=== PATIENT | male | born 1945 | race Hispanic/Latino ===

== ENCOUNTER 2018-08-09 13:32 | Inpatient (IN) | payer OTHER ==
[2018-08-09] MEDS ORDERED: Sodium Chloride 0.9% 1,000 ML IV STA (13:59)
--- NOTE | 2018-08-09 14:08 | ED PDOC ---
HPI: Abdomen Time Seen by Provider: 08/09/18 13:46 Chief Complaint (Nursing): Abdominal Pain Chief Complaint (Provider): Jaundice History Per: Patient Additional Complaint(s): Pt reports diarrhea X 6 days, started 2 days after arriving from [facility], notice yellow discoloration of skin and eyes 2 days ago with stool discoloration and dark urine. Denies fever, CP, SOB, nausea, vomiting, dysuria, hematuria. Took Imodium at home without relief. Past Medical History Reviewed: Nursing Documentation, Vital Signs Vital Signs: Last Vital Signs Temp 97 F L 08/09/18 13:33 Pulse 72 08/09/18 13:33 Resp 16 08/09/18 13:33 BP 149/83 08/09/18 13:33 Pulse Ox 98 08/09/18 13:33 - Medical History PMH: No Chronic Diseases - Surgical History Surgical History: Appendectomy - Family History Family History: States: Unknown Family Hx - Living Arrangements Living Arrangements: With Family - Social History Current smoker - smoking cessation education provided: No Alcohol: Occasional - Home Medications Home Medications: Ambulatory Orders Medication Instructions Recorded No Known Home Med 08/09/18 - Allergies Allergies/Adverse Reactions: Allergies Allergy/AdvReac Type Severity Reaction Status Date / Time Sulfa (Sulfonamide Allergy REDNESS Verified 08/09/18 13:34 Antibiotics) Review of Systems Constitutional: Negative for: Fever, Chills Eyes: Negative for: Pain Cardiovascular: Negative for: Chest Pain, Palpitations Respiratory: Negative for: Cough, Shortness of Breath Gastrointestinal: Positive for: Abdominal Pain, Diarrhea. Negative for: Nausea, Vomiting, Melena Genitourinary Male: Negative for: Dysuria, Hematuria Musculoskeletal: Negative for: Neck Pain, Back Pain Skin: Positive for: Jaundice Neurological: Negative for: Headache, Dizziness Physical Exam - Reviewed Nursing Documentation Reviewed: Yes Vital Signs Reviewed: Yes - Physical Exam Appears: Positive for: Well, No Acute Distress Head Exam: Positive for: ATRAUMATIC, NORMAL INSPECTION Skin: Positive for: Jaundice Eye Exam: Positive for: Normal appearance, EOMI, PERRL, Scleral icterus Neck: Positive for: Normal Cardiovascular/Chest: Positive for: Regular Rate, Rhythm Respiratory: Positive for: Normal Breath Sounds Gastrointestinal/Abdominal: Positive for: Bowel Sounds, Soft, Tenderness (RUQ), Other (+ Thomson's sign). Negative for: Distended, Guarding Back: Positive for: Normal Inspection Extremity: Positive for: Normal ROM Neurological/Psych: Positive for: Awake, Alert, Oriented - Laboratory Results Result Diagrams: 08/11/18 06:00 08/11/18 06:00 - ECG O2 Sat by Pulse Oximetry: 98 Medical Decision Making Medical Decision Makin yo male with jaundice and RUQ pain. - labs - EKG - CXR - RUQ ultrasound - IVF Disposition - Clinical Impression Clinical Impression: Gall bladder disease - Disposition Disposition: Transfer of Care Disposition Time: 15:00 Condition: STABLE Patient Signed Over To: Kesha Self
[2018-08-09 14:38] LABS: SQUAMOUS EPITHIAL 1 /hpf (0-5); URINE BACTERIA RARE (<OCC); URINE BILIRUBIN MODERATE (NEGATIVE); URINE BLOOD NEGATIVE (NEGATIVE); URINE CLARITY SLIGHTY-CLOUDY (Clear); URINE COLOR AMBER (YELLOW); URINE GLUCOSE (UA) NEG (NEGATIVE); URINE HYALINE CAST 0-2 /hpf (0-2); URINE LEUKOCYTE ESTERASE TRACE Leu/uL (Negative); URINE PROTEIN NEGATIVE (NEGATIVE)
[2018-08-09 14:43] LABS: BASO # 0.1 K/uL (0.0-0.2); BASO % 1.4 % (0.0-2.0); EOS # 0.2 K/uL (0.0-0.7); EOS % 3.1 % (0.0-4.0); HEMOGLOBIN 12.2 g/dL (12.0-18.0); LYMPH # 1.3 K/uL (1.0-4.3); LYMPH % 19.6 % (20.0-40.0); MEAN CELL VOLUME 87.8 fl (80.0-94.0); MEAN CORPUSCULAR HEMOGLOBIN 30.8 pg (27.0-31.0); MEAN CORPUSCULAR HGB CONC 35.1 g/dL (33.0-37.0); MEAN PLATELET VOLUME 9.4 fl (7.2-11.7); MONO # 0.6 K/uL (0.0-0.8); MONO % 9.9 % (0.0-10.0); NEUT # 4.3 K/uL (1.8-7.0); RBC 3.94 Mil/uL (4.40-5.90); RED CELL DISTRIBUTION WIDTH 17.2 % (11.5-14.5); WHITE BLOOD COUNT 6.5 K/uL (4.8-10.8)
[2018-08-09 14:46] LABS: INR 0.9
[2018-08-09 14:48] LABS: PARTIAL THROMBOPLASTIN TIME 38.3 Seconds (25.6-37.1)
[2018-08-09 14:50] LABS: ALT/SGPT 146 U/L (21-72); AST/SGOT 72 U/L (17-59); BLOOD UREA NITROGEN 17 mg/dl (9-20); CALCIUM 9.8 mg/dL (8.4-10.2); GFR NON-AFRICAN AMERICAN > 60; LIPASE 106 U/L (23-300)
--- NOTE | 2018-08-09 15:11 | ED PDOC ---
- Laboratory Results Result Diagrams: 08/10/18 06:30 08/10/18 06:30 Lab Results: INR 0.9 08/09/18 14:36 APTT 38.3 Seconds (25.6-37.1) H 08/09/18 14:36 Total Bilirubin 16.4 mg/dl (0.2-1.3) H 08/09/18 14:36 AST 72 U/L (17-59) H 08/09/18 14:36 ALT 146 U/L (21-72) H 08/09/18 14:36 Alkaline Phosphatase 602 U/L (38-126) H 08/09/18 14:36 Total Protein 8.1 G/DL (6.3-8.2) 08/09/18 14:36 Albumin 4.0 g/dL (3.5-5.0) 08/09/18 14:36 Globulin 4.1 gm/dL (2.2-3.9) H 08/09/18 14:36 Albumin/Globulin Ratio 1.0 (1.0-2.1) 08/09/18 14:36 Lipase 106 U/L (23-300) 08/09/18 14:36 - ECG O2 Sat by Pulse Oximetry: 98 Medical Decision Making Medical Decision Makin Patient is here from [facility] with headache and RUQ pain pending RUQ sono. His labs show elevated liver enzymes and will most likely require surgery consult. 1812 Abdomen US FINDINGS: Technologist notation indicates patient ate more than 8 hr prior to this study LIVER: Measures 17.0 cm in length. Normal echogenicity of the liver parenchyma. No mass. No intrahepatic bile duct dilatation. GALLBLADDER: Gallbladder is incompletely distended and/or contracted with irregular thick- walled appearance. While this could be secondary to recent meal with the gallbladder contraction rule differential diagnosis would still include chronic cholecystitis. The possibility of gallbladder wall mass/gallbladder carcinoma should be considered. No definitive evidence of intraluminal gallbladder calculi. Clinical correlation recommended. COMMON BILE DUCT: Measures 7.0 mm. No stones. No dilatation. PANCREAS: Unremarkable as visualized. No mass. No ductal dilatation. RIGHT KIDNEY: Measures 10.9 x 3.5 x 5.2 cm in length. Normal echogenicity. No calculus, mass, or hydronephrosis. AORTA: No aneurysmal dilatation. IVC: Unremarkable. OTHER FINDINGS: None . IMPRESSION: Gallbladder is incompletely distended and/or contracted with irregular thick- walled appearance. While this could be secondary to recent meal with the gallbladder contraction rule differential diagnosis would still include chronic cholecystitis. The possibility of gallbladder wall mass/gallbladder carcinoma should be considered. No definitive evidence of intraluminal gallbladder calculi. Clinical correlation recommended. 1849 Discussed case with on-call resident athletic trainer Dr. Drew who believes patient most likely has cancerous mass and suggested to call Dr. Gomez who does surgical oncology. Consult placed Scribe Attestation: Documented by Ashley Coreas, acting as a scribe for Kesha Self MD. Provider Scribe Attestation: All medical record entries made by the Scribe were at my direction and personally dictated by me. I have reviewed the chart and agree that the record accurately reflects my personal performance of the history, physical exam, medical decision making, and the department course for this patient. I have also personally directed, reviewed, and agree with the discharge instructions and disposition. Disposition - Clinical Impression Clinical Impression: Gall bladder disease - POA Present On Arrival: None - Disposition Disposition: Admitted as In-Patient Disposition Time: 18:50 Condition: FAIR
[2018-08-09 15:13] LABS: PROTHROMBIN TIME 9.9 Seconds (9.8-13.1)
--- NOTE | 2018-08-09 18:17 | US ---
Date of service: 08/09/2018 HISTORY: RUQ pain, jaundice COMPARISON: None. TECHNIQUE: Sonographic evaluation of the right upper quadrant of the abdomen. FINDINGS: Technologist notation indicates patient ate more than 8 hr prior to this study LIVER: Measures 17.0 cm in length. Normal echogenicity of the liver parenchyma. No mass. No intrahepatic bile duct dilatation. GALLBLADDER: Gallbladder is incompletely distended and/or contracted with irregular thick-walled appearance. While this could be secondary to recent meal with the gallbladder contraction rule differential diagnosis would still include chronic cholecystitis. The possibility of gallbladder wall mass/gallbladder carcinoma should be considered. No definitive evidence of intraluminal gallbladder calculi. Clinical correlation recommended. COMMON BILE DUCT: Measures 7.0 mm. No stones. No dilatation. PANCREAS: Unremarkable as visualized. No mass. No ductal dilatation. RIGHT KIDNEY: Measures 10.9 x 3.5 x 5.2 cm in length. Normal echogenicity. No calculus, mass, or hydronephrosis. AORTA: No aneurysmal dilatation. IVC: Unremarkable. OTHER FINDINGS: None . IMPRESSION: Gallbladder is incompletely distended and/or contracted with irregular thick-walled appearance. While this could be secondary to recent meal with the gallbladder contraction rule differential diagnosis would still include chronic cholecystitis. The possibility of gallbladder wall mass/gallbladder carcinoma should be considered. No definitive evidence of intraluminal gallbladder calculi. Clinical correlation recommended.
--- NOTE | 2018-08-09 18:55 | CP.PCM.CON ---
Past Patient History - Past Social History Alcohol: Occasional - GASTROINTESTINAL Hx Irritable Bowel: Yes - PSYCHIATRIC Hx Substance Use: No - SURGICAL HISTORY Hx Appendectomy: Yes Meds Allergies/Adverse Reactions: Allergies Allergy/AdvReac Type Severity Reaction Status Date / Time Sulfa (Sulfonamide Allergy REDNESS Verified 08/09/18 13:34 Antibiotics) - Medications Medications: Current Medications Sodium Chloride (Sodium Chloride 0.9%) 1,000 mls @ 125 mls/hr IV .Q8H STA Stop: 08/09/18 21:58 Last Admin: 08/09/18 14:30 Dose: 125 mls/hr Results - Vital Signs Recent Vital Signs: Last Vital Signs Temp 99.0 F 08/09/18 18:53 Pulse 69 08/09/18 18:53 Resp 18 08/09/18 18:53 BP 137/78 08/09/18 18:53 Pulse Ox 96 08/09/18 18:53 - Labs Result Diagrams: 08/09/18 14:36 08/09/18 14:36 Labs: Laboratory Results - last 24 hr 08/09/18 08/09/18 08/09/18 14:26 14:36 14:36 WBC 6.5 RBC 3.94 L Hgb 12.2 Hct 34.6 L MCV 87.8 MCH 30.8 MCHC 35.1 RDW 17.2 H Plt Count 274 MPV 9.4 Neut % (Auto) 66.0 Lymph % (Auto) 19.6 L [place] % (Auto) 9.9 Eos % (Auto) 3.1 Baso % (Auto) 1.4 Neut # (Auto) 4.3 Lymph # (Auto) 1.3 [place] # (Auto) 0.6 Eos # (Auto) 0.2 Baso # (Auto) 0.1 PT INR APTT Sodium 142 Potassium 3.9 Chloride 105 Carbon Dioxide 24 Anion Gap 17 BUN 17 Creatinine 0.8 Est GFR ( Amer) > 60 Est GFR (Non-Af Amer) > 60 Random Glucose 96 Calcium 9.8 Total Bilirubin 16.4 H AST 72 H ALT 146 H Alkaline Phosphatase 602 H Total Protein 8.1 Albumin 4.0 Globulin 4.1 H Albumin/Globulin Ratio 1.0 Lipase 106 Urine Color Liliya Urine Clarity Slighty-cloudy Urine pH 5.0 Ur Specific [place] [place] 1.018 Urine Protein Negative Urine Glucose (UA) Neg Urine Ketones Negative Urine Blood Negative Urine Nitrate Negative Urine Bilirubin Moderate Urine Urobilinogen 4.0 Ur Leukocyte Esterase Trace Urine RBC (Auto) 7 H Urine Microscopic WBC 13 H Ur Squamous Epith Cells 1 Urine Bacteria Rare Hyaline Casts 0-2 08/09/18 14:36 WBC RBC Hgb Hct MCV MCH MCHC RDW Plt Count MPV Neut % (Auto) Lymph % (Auto) [place] % (Auto) Eos % (Auto) Baso % (Auto) Neut # (Auto) Lymph # (Auto) [place] # (Auto) Eos # (Auto) Baso # (Auto) PT 9.9 INR 0.9 APTT 38.3 H Sodium Potassium Chloride Carbon Dioxide Anion Gap BUN Creatinine Est GFR ( Amer) Est GFR (Non-Af Amer) Random Glucose Calcium Total Bilirubin AST ALT Alkaline Phosphatase Total Protein Albumin Globulin Albumin/Globulin Ratio Lipase Urine Color Urine Clarity Urine pH Ur Specific [place] [place] Urine Protein Urine Glucose (UA) Urine Ketones Urine Blood Urine Nitrate Urine Bilirubin Urine Urobilinogen Ur Leukocyte Esterase Urine RBC (Auto) Urine Microscopic WBC Ur Squamous Epith Cells Urine Bacteria Hyaline Casts
--- NOTE | 2018-08-09 19:25 | CP.PCM.HP ---
<Michael Mckenzie - Last Filed: 08/09/18 20:43> History of Present Illness - History of Present Illness History of Present Illness: Hepatobiliary Surgery H&P for Dr. Booth cc: Jaundice, diarrhea 72M with PMH that includes IBS presents to [facility] ED for complaint of jaundice and diarrhea. Patient was seen and evaluated in the ED. Patient [place] visit his son's family. At that time, he develop fatigue, malaise and diarrhea. Patient states that over next few days his symptoms progressed. On Sunday 08/06, his noticed that his eyes and skin developed a yellow hue. Patient thought maybe it would resolve with some rest but again symptoms worsened until today when he was brought in by his family. Patient denies any abdominal pain currently. He states three years ago he was diagnosed with IBS. Around that time, he was complaining of abdominal pain and bloating. Since then he has intermittently had pain and bloating attributed to IBS. In ED, patient found to have t. bili of 16.4 with elevated LFTs and alk phos of 602. ABUS was done which was suggestive of gallbladder mass with dilated biliary ducts (see full report). Admits to dark urine. Denies fever/chills, cp, SOB, abd pain, n/v, constipation, incontinence, recent illness, or sick contacts. PMH: IBS PSH: denies ALL: Sulf drugs FH: denies Social: former smoker, occasionaly EtOH, denies illicit drug use Present on Admission - Present on Admission Any Indicators Present on Admission: No History of DVT/PE: No History of Uncontrolled Diabetes: No Urinary Catheter: No Decubitus Ulcer Present: No Review of Systems - Review of Systems All systems: reviewed and no additional remarkable complaints except (as per HPI) Past Patient History - Past Social History Alcohol: Occasional - GASTROINTESTINAL Hx Irritable Bowel: Yes - PSYCHIATRIC Hx Substance Use: No - SURGICAL HISTORY Hx Appendectomy: Yes Meds Allergies/Adverse Reactions: Allergies Allergy/AdvReac Type Severity Reaction Status Date / Time Sulfa (Sulfonamide Allergy REDNESS Verified 08/09/18 13:34 Antibiotics) Physical Exam - Constitutional Appears: Well, Non-toxic, No Acute Distress Additional comments: jaundice - Head Exam Head Exam: ATRAUMATIC, NORMOCEPHALIC - Eye Exam Eye Exam: EOMI, Scleral icterus Pupil Exam: PERRL - ENT Exam ENT Exam: Mucous Membranes Moist - Neck Exam Neck exam: Positive for: Full Rom - Respiratory Exam Respiratory Exam: NORMAL BREATHING PATTERN - Cardiovascular Exam Cardiovascular Exam: REGULAR RHYTHM - GI/Abdominal Exam GI & Abdominal Exam: Normal Bowel Sounds, Soft, Tenderness (RUQ with shaquille palpation). absent: Distended, Firm, Guarding, Hernia, Rebound, Rigid - Rectal Exam Rectal Exam: Deferred - Extremities Exam Extremities exam: Positive for: normal capillary refill, pedal pulses present. Negative for: calf tenderness - Back Exam Back exam: absent: CVA tenderness (L), CVA tenderness (R) - Neurological Exam Neurological exam: Alert, CN II-XII Intact, Oriented x3 - Psychiatric Exam Psychiatric exam: Normal Affect, Normal Mood - Skin Skin Exam: Dry, Intact, Warm Additional comments: jaundice Results - Vital Signs Recent Vital Signs: Last Vital Signs Temp 99.0 F 08/09/18 18:53 Pulse 69 08/09/18 18:53 Resp 18 08/09/18 18:53 BP 137/78 08/09/18 18:53 Pulse Ox 98 08/09/18 19:01 - Labs Result Diagrams: 08/09/18 14:36 08/09/18 14:36 Labs: Laboratory Results - last 24 hr 08/09/18 08/09/18 08/09/18 14:26 14:36 14:36 WBC 6.5 RBC 3.94 L Hgb 12.2 Hct 34.6 L MCV 87.8 MCH 30.8 MCHC 35.1 RDW 17.2 H Plt Count 274 MPV 9.4 Neut % (Auto) 66.0 Lymph % (Auto) 19.6 L [place] % (Auto) 9.9 Eos % (Auto) 3.1 Baso % (Auto) 1.4 Neut # (Auto) 4.3 Lymph # (Auto) 1.3 [place] # (Auto) 0.6 Eos # (Auto) 0.2 Baso # (Auto) 0.1 PT INR APTT Sodium 142 Potassium 3.9 Chloride 105 Carbon Dioxide 24 Anion Gap 17 BUN 17 Creatinine 0.8 Est GFR ( Amer) > 60 Est GFR (Non-Af Amer) > 60 Random Glucose 96 Calcium 9.8 Total Bilirubin 16.4 H AST 72 H ALT 146 H Alkaline Phosphatase 602 H Total Protein 8.1 Albumin 4.0 Globulin 4.1 H Albumin/Globulin Ratio 1.0 Lipase 106 Urine Color Liliya Urine Clarity Slighty-cloudy Urine pH 5.0 Ur Specific [place] 1.018 Urine Protein Negative Urine Glucose (UA) Neg Urine Ketones Negative Urine Blood Negative Urine Nitrate Negative Urine Bilirubin Moderate Urine Urobilinogen 4.0 Ur Leukocyte Esterase Trace Urine RBC (Auto) 7 H Urine Microscopic WBC 13 H Ur Squamous Epith Cells 1 Urine Bacteria Rare Hyaline Casts 0-2 08/09/18 14:36 WBC RBC Hgb Hct MCV MCH MCHC RDW Plt Count MPV Neut % (Auto) Lymph % (Auto) [place] % (Auto) Eos % (Auto) Baso % (Auto) Neut # (Auto) Lymph # (Auto) [place] # (Auto) Eos # (Auto) Baso # (Auto) PT 9.9 INR 0.9 APTT 38.3 H Sodium Potassium Chloride Carbon Dioxide Anion Gap BUN Creatinine Est GFR ( Amer) Est GFR (Non-Af Amer) Random Glucose Calcium Total Bilirubin AST ALT Alkaline Phosphatase Total Protein Albumin Globulin Albumin/Globulin Ratio Lipase Urine Color Urine Clarity Urine pH Ur Specific [place] Urine Protein Urine Glucose (UA) Urine Ketones Urine Blood Urine Nitrate Urine Bilirubin Urine Urobilinogen Ur Leukocyte Esterase Urine RBC (Auto) Urine Microscopic WBC Ur Squamous Epith Cells Urine Bacteria Hyaline Casts Assessment & Plan - Assessment and Plan (Free Text) Assessment: 72 M who presents with jaundice, elevated t. bili and LFTs with suspected gallbladder mass Plan: -Admit to Med/surg -CLD -IVF -Analgesics/Anti-emetics PRN -Pain control -GI/DVT ppx -f/u Ct triple phase -f/u CEA, Ca 19-9, AFP -Discussed with Dr. Tinajero PGY2 - Date & Time Date: 08/09/18 Time: 19:25 <Nader Leon - Last Filed: 08/15/18 10:09> Results - Vital Signs Recent Vital Signs: Last Vital Signs Temp 97.7 F 08/11/18 08:21 Pulse 51 L 08/11/18 08:21 Resp 20 08/11/18 08:21 BP 149/83 08/11/18 08:21 Pulse Ox 96 08/11/18 08:21 - Labs Result Diagrams: 08/14/18 09:40 08/14/18 09:40 Labs: Laboratory Results - last 24 hr 08/10/18 08/10/18 08/11/18 00:20 22:24 05:39 WBC RBC Hgb Hct MCV MCH MCHC RDW Plt Count MPV Neut % (Auto) Lymph % (Auto) [place] % (Auto) Eos % (Auto) Baso % (Auto) Neut # (Auto) Lymph # (Auto) [place] # (Auto) Eos # (Auto) Baso # (Auto) Sodium Potassium Chloride Carbon Dioxide Anion Gap BUN Creatinine Est GFR ( Amer) Est GFR (Non-Af Amer) POC Glucose (mg/dL) 117 H 102 Random Glucose Calcium Phosphorus Magnesium Total Bilirubin AST ALT Alkaline Phosphatase Total Protein Albumin Globulin Albumin/Globulin Ratio CA 19-9 Antigen 62.9 H 08/11/18 08/11/18 06:00 06:00 WBC 4.8 RBC 3.59 L Hgb 10.8 L Hct 32.0 L MCV 89.1 MCH 30.2 MCHC 33.8 RDW 17.9 H Plt Count 258 MPV 9.5 Neut % (Auto) 50.0 Lymph % (Auto) 30.0 [place] % (Auto) 12.3 H Eos % (Auto) 6.3 H Baso % (Auto) 1.4 Neut # (Auto) 2.4 Lymph # (Auto) 1.5 [place] # (Auto) 0.6 Eos # (Auto) 0.3 Baso # (Auto) 0.1 Sodium 138 Potassium 3.7 Chloride 104 Carbon Dioxide 27 Anion Gap 11 BUN 8 L Creatinine 0.8 Est GFR ( Amer) > 60 Est GFR (Non-Af Amer) > 60 POC Glucose (mg/dL) Random Glucose 110 Calcium 9.1 Phosphorus 3.6 Magnesium 2.2 Total Bilirubin 16.1 H AST 47 ALT 91 H Alkaline Phosphatase 474 H Total Protein 6.7 Albumin 3.2 L Globulin 3.5 Albumin/Globulin Ratio 0.9 L CA 19-9 Antigen Assessment & Plan - Assessment and Plan (Free Text) Plan: All medical record entries made by the resident were at my direction and personally directed by me. I have reviewed the chart and agree that the record accurately reflects my personal performance of the history, physical exam, medical decision making. I have also personally directed, reviewed, and agree with the resident note.
[2018-08-09] MEDS ORDERED: Sodium Chloride 0.9% 50 ML IV ONE (20:22)
[2018-08-09] MEDS ORDERED: Iohexol 300 100 ML IJ ONE (20:22)
[2018-08-09] MEDS ORDERED: Sterile Water 10 ML IV ONE (20:53)
[2018-08-09] MEDS: Enoxaparin 40 mg Syringe SC SCH (21:55)
[2018-08-09] MEDS: Lactated Ringer's 1,000 ML IV SCH (21:58)
[2018-08-10] MEDS: Lactated Ringer's 1,000 ML IV SCH ×5 (03:30→19:00)
--- NOTE | 2018-08-10 08:27 | CP.PCM.PN ---
<Wm Nicholas Cristy - Last Filed: 08/10/18 08:24> Subjective - Date & Time of Evaluation Date of Evaluation: 08/10/18 Time of Evaluation: 08:24 - Subjective Subjective: HPB Surgery: Dr Booth Pt S&E. AMISHA. Condition unchanged since admission. Minimal nausea. Tolerating liquid diet. CT performed, official read pending. PT will need MRCP. Objective - Vital Signs/Intake and Output Vital Signs (last 24 hours): Temp Pulse Resp BP Pulse Ox 98 F 60 18 147/85 96 08/10/18 01:40 08/10/18 01:40 08/10/18 01:40 08/10/18 01:40 08/10/18 01:40 - Medications Medications: Current Medications Acetaminophen (Tylenol 325mg Tab) 650 mg PO Q6 PRN PRN Reason: Pain, Mild (1-3) Enoxaparin Sodium (Lovenox) 40 mg SC DAILY [facility]; Protocol Last Admin: 08/09/18 21:55 Dose: 40 mg Lactated Ringer's (Lactated Ringer's) 1,000 mls @ 125 mls/hr IV .Q8H [facility] Last Admin: 08/10/18 05:35 Dose: 125 mls/hr Morphine Sulfate (Morphine) 2 mg IVP Q4 PRN PRN Reason: Pain, severe (8-10) Ondansetron HCl (Zofran Inj) 4 mg IVP Q6 PRN PRN Reason: Nausea/Vomiting Oxycodone HCl (Oxycodone Immediate Release Tab) 5 mg PO Q6 PRN PRN Reason: Pain, moderate (4-7) Pantoprazole Sodium (Protonix Inj) 40 mg IVP DAILY [facility] Last Admin: 08/09/18 21:55 Dose: 40 mg - Labs Labs: 08/09/18 14:36 08/09/18 14:36 PT 9.9 Seconds (9.8-13.1) 08/09/18 14:36 INR 0.9 08/09/18 14:36 APTT 38.3 Seconds (25.6-37.1) H 08/09/18 14:36 - Constitutional Appears: Non-toxic, No Acute Distress - Eye Exam Eye Exam: Scleral icterus - Respiratory Exam Respiratory Exam: absent: Respiratory Distress - Cardiovascular Exam Cardiovascular Exam: absent: Tachycardia - GI/Abdominal Exam GI & Abdominal Exam: Distended, Soft. absent: Tenderness - Neurological Exam Neurological Exam: Alert, Awake - Skin Additional comments: jaundiced Assessment and Plan - Assessment and Plan (Free Text) Assessment: 72M with hyperbilirubinemia and dilated intrahepatic ducts Plan: cont CLD trend LFTs f/u official CT read pending MRCP will d/w Dr Connelly, PGY4 <Nader Leon - Last Filed: 08/15/18 10:22> Objective - Vital Signs/Intake and Output Vital Signs (last 24 hours): Temp Pulse Resp BP Pulse Ox 97.7 F 51 L 20 149/83 96 08/11/18 08:21 08/11/18 08:21 08/11/18 08:21 08/11/18 08:21 08/11/18 08:21 - Medications Medications: Current Medications Acetaminophen (Tylenol 325mg Tab) 650 mg PO Q6 PRN PRN Reason: Pain, Mild (1-3) Enoxaparin Sodium (Lovenox) 40 mg SC DAILY [facility]; Protocol Last Admin: 08/11/18 12:17 Dose: 40 mg Lactated Ringer's (Lactated Ringer's) 1,000 mls @ 125 mls/hr IV .Q8H [facility] Last Admin: 08/11/18 12:16 Dose: Not Given Morphine Sulfate (Morphine) 2 mg IVP Q4 PRN PRN Reason: Pain, severe (8-10) Ondansetron HCl (Zofran Inj) 4 mg IVP Q6 PRN PRN Reason: Nausea/Vomiting Oxycodone HCl (Oxycodone Immediate Release Tab) 5 mg PO Q6 PRN PRN Reason: Pain, moderate (4-7) Pantoprazole Sodium (Protonix Inj) 40 mg IVP DAILY [facility] Last Admin: 08/11/18 12:20 Dose: 40 mg - Labs Labs: 08/11/18 06:00 08/11/18 06:00 PT 9.9 Seconds (9.8-13.1) 08/09/18 14:36 INR 0.9 08/09/18 14:36 APTT 38.3 Seconds (25.6-37.1) H 08/09/18 14:36 Assessment and Plan - Assessment and Plan (Free Text) Plan: All medical record entries made by the resident were at my direction and personally directed by me. I have reviewed the chart and agree that the record accurately reflects my personal performance of the history, physical exam, medical decision making. I have also personally directed, reviewed, and agree with the resident note. Awaits MRI/MRCP. Not GB mass, dilated intrahepatic ducts on CT
[2018-08-10 08:48] LABS: BASO # 0.1 K/uL (0.0-0.2); BASO % 1.5 % (0.0-2.0); EOS # 0.3 K/uL (0.0-0.7); EOS % 5.7 % (0.0-4.0); HEMOGLOBIN 11.2 g/dL (12.0-18.0); LYMPH # 1.3 K/uL (1.0-4.3); LYMPH % 24.9 % (20.0-40.0); MEAN CELL VOLUME 87.8 fl (80.0-94.0); MEAN CORPUSCULAR HEMOGLOBIN 30.4 pg (27.0-31.0); MEAN CORPUSCULAR HGB CONC 34.6 g/dL (33.0-37.0); MEAN PLATELET VOLUME 9.8 fl (7.2-11.7); MONO # 0.6 K/uL (0.0-0.8); NEUT # 2.9 K/uL (1.8-7.0); NEUT % 56.9 % (50.0-75.0); NRBC % 0.1 % (0.0-0.0); RBC 3.7 Mil/uL (4.40-5.90); RED CELL DISTRIBUTION WIDTH 17.5 % (11.5-14.5); WHITE BLOOD COUNT 5.2 K/uL (4.8-10.8)
[2018-08-10 09:09] LABS: ALBUMIN 3.4 g/dL (3.5-5.0); ALT/SGPT 104 U/L (21-72); AST/SGOT 56 U/L (17-59); BLOOD UREA NITROGEN 11 mg/dl (9-20); GFR NON-AFRICAN AMERICAN > 60
[2018-08-10] MEDS: Enoxaparin 40 mg Syringe SC SCH (11:19)
--- NOTE | 2018-08-10 16:44 | CARD ---
APPROVED REPORT Date of service: 08/09/2018 EKG Measurement Heart [id number] <Conclusion> Normal sinus rhythm Left axis deviation Nonspecific ST and T wave abnormality Abnormal ECG
--- NOTE | 2018-08-10 17:36 | CT ---
Date of service: 08/09/2018 PROCEDURE: CT scan abdomen pelvis-triple phase exam of the liver HISTORY: Jaundice, elevated t bili, questionable gallbladder mass COMPARISON: Comparison made with abdominal ultrasound obtained earlier same day TECHNIQUE: Contiguous axial images of the abdomen and pelvis performed before and following intravenous injection of approximately 90 cc of Omnipaque 300 contrast material. Delayed imaging of the liver performed. Additional 2D sagittal and coronal reformats generated. Radiation dose: Total exam DLP = 0.0 mGy-cm. This CT exam was performed using one or more of the following dose reduction techniques: Automated exposure control, adjustment of the mA and/or kV according to patient size, and/or use of iterative reconstruction technique. FINDINGS: LOWER THORAX: Unremarkable. LIVER: Liver is upper limits of normal/borderline enlarged measuring nearly 19 cm in CC dimension. There is moderate intrahepatic biliary ductal dilatation. GALLBLADDER AND BILE DUCTS: The gallbladder appears markedly contracted and contains at least 1 calculus in the region of the gallbladder fundus. No definitive evidence of dilatation of the common bile duct. Follow-up ERCP or MRCP recommended for further evaluation and to exclude a obstructing calculus or other invasive/obstructing ductal lesion PANCREAS: Pancreas appears grossly unremarkable without obvious mass or collection. No significant pancreatic ductal dilatation. SPLEEN: Spleen is borderline/mildly enlarged measuring nearly 14 cm in AP dimension. No mass collection or calcification. ADRENALS: There is an approximately 11.6 mm low-attenuation nodule left adrenal gland with Hounsfield units minus upper single digits - low double digits possibly representing an adrenal adenoma KIDNEYS AND URETERS: Kidneys demonstrate symmetric nephrograms. No evidence of nephrolithiasis or hydronephrosis.. There is a small low-attenuation structure posterolateral cortex lower pole left kidney most likely representing small cyst BLADDER: Urinary bladder is incompletely distended which in part accounts for slight thick-walled appearance. Muscular hypertrophy presumably contributes however correlation with urinalysis recommended to exclude cystitis or other intrinsic lesion. REPRODUCTIVE: Unremarkable. APPENDIX: Unremarkable. BOWEL: Evaluation of the bowel is somewhat limited due to the lack of oral contrast material. Stomach is incompletely distended of which presumably in part accounts for thick-walled appearance. Visualized loops of small bowel exhibit normal contour and caliber. No evidence of acute mechanical small bowel obstruction. Stool and air seen throughout the colon. No definitive colonic mural wall thickening PERITONEUM: Unremarkable. No fluid collection. No free air. Small fat containing umbilical hernia. LYMPH NODES: Unremarkable. No enlarged lymph nodes. VASCULATURE: Unremarkable. No aortic aneurysm. Moderate aortic atherosclerotic calcification or mural plaque present. BONES: Mild multilevel degenerative spondylosis of the lower thoracic and lumbar spine. There also subtle levoscoliosis centered at the mid lumbar region. There appear to be a few scattered hemangiomas within the lower thoracic spine OTHER FINDINGS: None. IMPRESSION: There is mild hepatomegaly with moderate to fairly significant intrahepatic biliary ductal dilatation. Gallbladder is markedly contracted with what appears represent at least 1 calculus in the fundal region. Findings may be secondary chronic coli cystitis. Clinical correlation recommended. Recommend followup MRCP/ERCP to exclude a choledocholithiasis or other invasive-obstructing ductal lesion.
[2018-08-11] MEDS: Lactated Ringer's 1,000 ML IV SCH ×3 (00:23→19:20)
[2018-08-11 06:31] LABS: BASO # 0.1 K/uL (0.0-0.2); BASO % 1.4 % (0.0-2.0); EOS # 0.3 K/uL (0.0-0.7); EOS % 6.3 % (0.0-4.0); HEMOGLOBIN 10.8 g/dL (12.0-18.0); LYMPH # 1.5 K/uL (1.0-4.3); MEAN CELL VOLUME 89.1 fl (80.0-94.0); MEAN CORPUSCULAR HEMOGLOBIN 30.2 pg (27.0-31.0); MEAN CORPUSCULAR HGB CONC 33.8 g/dL (33.0-37.0); MEAN PLATELET VOLUME 9.5 fl (7.2-11.7); MONO # 0.6 K/uL (0.0-0.8); MONO % 12.3 % (0.0-10.0); NEUT # 2.4 K/uL (1.8-7.0); NRBC % 0.1 % (0.0-0.0); RBC 3.59 Mil/uL (4.40-5.90); RED CELL DISTRIBUTION WIDTH 17.9 % (11.5-14.5); WHITE BLOOD COUNT 4.8 K/uL (4.8-10.8)
[2018-08-11 06:51] LABS: ALB/GLOB RATIO 0.9 (1.0-2.1); ALBUMIN 3.2 g/dL (3.5-5.0); ALT/SGPT 91 U/L (21-72); AST/SGOT 47 U/L (17-59); BLOOD UREA NITROGEN 8 mg/dl (9-20); CALCIUM 9.1 mg/dL (8.4-10.2); GFR NON-AFRICAN AMERICAN > 60
--- NOTE | 2018-08-11 09:26 | CP.PCM.PN ---
<Michael Mckenzie - Last Filed: 08/11/18 09:34> Subjective - Date & Time of Evaluation Date of Evaluation: 08/11/18 Time of Evaluation: 09:27 - Subjective Subjective: HBP Surgery Note for Dr. Booth Patient seen and examined at bedside. No acute event overnight. Patient reports intermittent epigastric pain. Patient is tolerating diet. Denies fever/chills or nausea/vomiting. MRCP today. Objective - Vital Signs/Intake and Output Vital Signs (last 24 hours): Temp Pulse Resp BP Pulse Ox 97.7 F 51 L 20 149/83 96 08/11/18 08:21 08/11/18 08:21 08/11/18 08:21 08/11/18 08:21 08/11/18 08:21 - Medications Medications: Current Medications Acetaminophen (Tylenol 325mg Tab) 650 mg PO Q6 PRN PRN Reason: Pain, Mild (1-3) Enoxaparin Sodium (Lovenox) 40 mg SC DAILY [facility]; Protocol Last Admin: 08/10/18 11:19 Dose: 40 mg Lactated Ringer's (Lactated Ringer's) 1,000 mls @ 125 mls/hr IV .Q8H [facility] Last Admin: 08/11/18 00:23 Dose: 125 mls/hr Morphine Sulfate (Morphine) 2 mg IVP Q4 PRN PRN Reason: Pain, severe (8-10) Ondansetron HCl (Zofran Inj) 4 mg IVP Q6 PRN PRN Reason: Nausea/Vomiting Oxycodone HCl (Oxycodone Immediate Release Tab) 5 mg PO Q6 PRN PRN Reason: Pain, moderate (4-7) Pantoprazole Sodium (Protonix Inj) 40 mg IVP DAILY [facility] Last Admin: 08/10/18 11:19 Dose: 40 mg - Labs Labs: 08/11/18 06:00 08/11/18 06:00 PT 9.9 Seconds (9.8-13.1) 08/09/18 14:36 INR 0.9 08/09/18 14:36 APTT 38.3 Seconds (25.6-37.1) H 08/09/18 14:36 - Constitutional Appears: No Acute Distress, Other (jaundice) - Head Exam Head Exam: ATRAUMATIC, NORMOCEPHALIC - Eye Exam Eye Exam: EOMI, Scleral icterus Pupil Exam: PERRL - ENT Exam ENT Exam: Mucous Membranes Moist - Respiratory Exam Respiratory Exam: NORMAL BREATHING PATTERN - Cardiovascular Exam Cardiovascular Exam: Bradycardia - GI/Abdominal Exam GI & Abdominal Exam: Soft, Tenderness (mild), Normal Bowel Sounds. absent: Distended, Firm, Guarding, Rigid, Rebound - Extremities Exam Extremities Exam: Normal Capillary Refill - Back Exam Back Exam: absent: CVA tenderness (L), CVA tenderness (R) - Neurological Exam Neurological Exam: Alert, Awake, CN II-XII Intact, Oriented x3 - Psychiatric Exam Psychiatric exam: Normal Affect, Normal Mood - Skin Skin Exam: Dry, Intact, Warm Additional comments: jaundice Assessment and Plan - Assessment and Plan (Free Text) Assessment: 72 M who presents with hyperbilirubinemia and dilated intrahepatic ducts Plan: -CLD -pain control -trend LFTs -f/u MRCP -Further recommendations as per Dr Tinajero PGY2 <Nader Leon - Last Filed: 08/15/18 10:24> Subjective - Subjective Subjective: All medical record entries made by the resident were at my direction and personally directed by me. I have reviewed the chart and agree that the record accurately reflects my personal performance of the history, physical exam, medical decision making. I have also personally directed, reviewed, and agree with the resident note. Patient had MRI/MRCP. 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 Would benefit from Spyglass/ERCP. If not feasible, needs PTC/brushings. Will discuss with patient and family Objective - Vital Signs/Intake and Output Vital Signs (last 24 hours): Temp Pulse Resp BP Pulse Ox 97.7 F 51 L 20 149/83 96 08/11/18 08:21 08/11/18 08:21 08/11/18 08:21 08/11/18 08:21 08/11/18 08:21 - Medications Medications: Current Medications Acetaminophen (Tylenol 325mg Tab) 650 mg PO Q6 PRN PRN Reason: Pain, Mild (1-3) Enoxaparin Sodium (Lovenox) 40 mg SC DAILY [facility]; Protocol Last Admin: 08/11/18 12:17 Dose: 40 mg Lactated Ringer's (Lactated Ringer's) 1,000 mls @ 125 mls/hr IV .Q8H [facility] Last Admin: 08/11/18 12:16 Dose: Not Given Morphine Sulfate (Morphine) 2 mg IVP Q4 PRN PRN Reason: Pain, severe (8-10) Ondansetron HCl (Zofran Inj) 4 mg IVP Q6 PRN PRN Reason: Nausea/Vomiting Oxycodone HCl (Oxycodone Immediate Release Tab) 5 mg PO Q6 PRN PRN Reason: Pain, moderate (4-7) Pantoprazole Sodium (Protonix Inj) 40 mg IVP DAILY [facility] Last Admin: 08/11/18 12:20 Dose: 40 mg - Labs Labs: 08/11/18 06:00 08/11/18 06:00 PT 9.9 Seconds (9.8-13.1) 08/09/18 14:36 INR 0.9 08/09/18 14:36 APTT 38.3 Seconds (25.6-37.1) H 08/09/18 14:36 Assessment and Plan - Assessment and Plan (Free Text) Plan: All medical record entries made by the resident were at my direction. I have reviewed the chart and agree that the record accurately reflects my personal performance of the history, physical exam, medical decision making. I have also personally examined the patient, reviewed, and agree the resident note. Will need either Spyglass or PTC. 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
[2018-08-11] MEDS ORDERED: Gadodiamide 287 MG/ML VIAL (15ML) IV ONE (09:28)
[2018-08-11] MEDS ORDERED: Sodium Chloride 0.9% 50 ML IV ONE (09:28)
--- NOTE | 2018-08-11 10:45 | CP.PCM.CON ---
<Matthew Gonzalez - Last Filed: 08/11/18 16:34> History of Present Illness - History of Present Illness History of Present Illness: PGY-4 GI Fellow Consult Note Pt is a 72 yo WM with h/o IBS (unspecified), Zenkers diverticulum (s/p multiple surgical repairs) presenting with yellow skin, diarrhea and fatigue. He states he from [place] and flew in to visit his son on 08/01/18 and shortly after arrival he began to feel tired with some loose, brown greasy stools in the morning. States he typically has formed brown BMs daily or every other day. After a few days of those symptoms, he and his family began to notice that his eyes turned yellow and eventually his entire skin. He also noticed that his urine became darker, "like Guinness beer." He denied any recent abx use, travel (other than [facility] to [facility]), sick contacts, change in diet, weight loss, dysphagia, N/V, constipation, melena nor hematochezia. He states that he had some intermittent bloating that is stable and he attributed to his IBS. Upon presentation he was HDS, found to have abnormal liver tests with predominant cholestatic patter with possible GB wall thickening vs mass and intrahepatic duct dilation. MRCP pending. GI consulted for further evaluation. 12 point ROS negative other than stated above Endos (done in [place]) EGD: Jesus with last ~ 2012 to f/u Zenker surgery, no other details known CSPY 2014: Polyp in R colon s/p removal MHx: See above SurgHx: Zenkers surgeries, Appendectomy as child Meds: Reviewed in chart FamHx: Denied h/o GI problems SocHx: Former Tob, social EtOH with daily 1 kuldeep consumption, denied illicits All: Sulfa - redness Past Patient History - Past Medical History & Family History Past Medical History?: Yes - Past Social History Smoking Status: Never Smoked - CARDIAC Hx Cardiac Disorders: No - PULMONARY Hx Respiratory Disorders: No - NEUROLOGICAL Hx Neurological Disorder: No - HEENT Hx HEENT Problems: No - RENAL Hx Chronic Kidney Disease: No - ENDOCRINE/METABOLIC Hx Endocrine Disorders: No - HEMATOLOGICAL/ONCOLOGICAL Hx Blood Disorders: No - INTEGUMENTARY Hx Dermatological Problems: No - MUSCULOSKELETAL/RHEUMATOLOGICAL Hx Musculoskeletal Disorders: No Hx Falls: No - GASTROINTESTINAL Hx Gastrointestinal Disorders: Yes Hx Irritable Bowel: Yes - GENITOURINARY/GYNECOLOGICAL Hx Genitourinary Disorders: No - PSYCHIATRIC Hx Psychophysiologic Disorder: No Hx Substance Use: No - SURGICAL HISTORY Hx Surgeries: Yes Hx Appendectomy: Yes Other/Comment: throat surgery - ANESTHESIA Hx Anesthesia: Yes Hx Anesthesia Reactions: No Meds Allergies/Adverse Reactions: Allergies Allergy/AdvReac Type Severity Reaction Status Date / Time Sulfa (Sulfonamide Allergy REDNESS Verified 08/09/18 13:34 Antibiotics) - Medications Medications: Current Medications Acetaminophen (Tylenol 325mg Tab) 650 mg PO Q6 PRN PRN Reason: Pain, Mild (1-3) Enoxaparin Sodium (Lovenox) 40 mg SC DAILY [facility]; Protocol Last Admin: 08/10/18 11:19 Dose: 40 mg Lactated Ringer's (Lactated Ringer's) 1,000 mls @ 125 mls/hr IV .Q8H [facility] Last Admin: 08/11/18 00:23 Dose: 125 mls/hr Morphine Sulfate (Morphine) 2 mg IVP Q4 PRN PRN Reason: Pain, severe (8-10) Ondansetron HCl (Zofran Inj) 4 mg IVP Q6 PRN PRN Reason: Nausea/Vomiting Oxycodone HCl (Oxycodone Immediate Release Tab) 5 mg PO Q6 PRN PRN Reason: Pain, moderate (4-7) Pantoprazole Sodium (Protonix Inj) 40 mg IVP DAILY [facility] Last Admin: 08/10/18 11:19 Dose: 40 mg Physical Exam - Constitutional Appears: Well, No Acute Distress - Head Exam Head Exam: ATRAUMATIC, NORMAL INSPECTION - Eye Exam Eye Exam: EOMI, Scleral icterus - ENT Exam ENT Exam: Mucous Membranes Moist. absent: Mucous Membranes Dry - Respiratory Exam Respiratory Exam: Clear to Auscultation Bilateral, NORMAL BREATHING PATTERN. absent: Accessory Muscle Use - Cardiovascular Exam Cardiovascular Exam: REGULAR RHYTHM, RRR - GI/Abdominal Exam GI & Abdominal Exam: Normal Bowel Sounds, Soft. absent: Bruit, Diminished Bowel Sounds, Distended, Firm, Guarding, Hernia, Mass, Organomegaly, Pulsatile Mass, Rebound, Rigid, Tenderness - Rectal Exam Rectal Exam: Deferred - Extremities Exam Extremities exam: Positive for: normal inspection. Negative for: pedal edema - Neurological Exam Neurological exam: Alert, CN II-XII Intact - Psychiatric Exam Psychiatric exam: Normal Affect, Normal Mood - Skin Skin Exam: Dry, Warm Additional comments: +Jaundice Results - Vital Signs Recent Vital Signs: Last Vital Signs Temp 97.7 F 08/11/18 08:21 Pulse 51 L 08/11/18 08:21 Resp 20 08/11/18 08:21 BP 149/83 08/11/18 08:21 Pulse Ox 96 08/11/18 08:21 - Labs Result Diagrams: 08/11/18 06:00 08/11/18 06:00 Labs: Laboratory Results - last 24 hr 08/10/18 08/10/18 08/11/18 00:20 22:24 05:39 WBC RBC Hgb Hct MCV MCH MCHC RDW Plt Count MPV Neut % (Auto) Lymph % (Auto) [place] % (Auto) Eos % (Auto) Baso % (Auto) Neut # (Auto) Lymph # (Auto) [place] # (Auto) Eos # (Auto) Baso # (Auto) Sodium Potassium Chloride Carbon Dioxide Anion Gap BUN Creatinine Est GFR ( Amer) Est GFR (Non-Af Amer) POC Glucose (mg/dL) 117 H 102 Random Glucose Calcium Phosphorus Magnesium Total Bilirubin AST ALT Alkaline Phosphatase Total Protein Albumin Globulin Albumin/Globulin Ratio CA 19-9 Antigen 62.9 H 08/11/18 08/11/18 06:00 06:00 WBC 4.8 RBC 3.59 L Hgb 10.8 L Hct 32.0 L MCV 89.1 MCH 30.2 MCHC 33.8 RDW 17.9 H Plt Count 258 MPV 9.5 Neut % (Auto) 50.0 Lymph % (Auto) 30.0 [place] % (Auto) 12.3 H Eos % (Auto) 6.3 H Baso % (Auto) 1.4 Neut # (Auto) 2.4 Lymph # (Auto) 1.5 [place] # (Auto) 0.6 Eos # (Auto) 0.3 Baso # (Auto) 0.1 Sodium 138 Potassium 3.7 Chloride 104 Carbon Dioxide 27 Anion Gap 11 BUN 8 L Creatinine 0.8 Est GFR ( Amer) > 60 Est GFR (Non-Af Amer) > 60 POC Glucose (mg/dL) Random Glucose 110 Calcium 9.1 Phosphorus 3.6 Magnesium 2.2 Total Bilirubin 16.1 H AST 47 ALT 91 H Alkaline Phosphatase 474 H Total Protein 6.7 Albumin 3.2 L Globulin 3.5 Albumin/Globulin Ratio 0.9 L CA 19-9 Antigen Assessment & Plan - Assessment and Plan (Free Text) Assessment: 72 yo M presenting with jaundice, fatigue, diarrhea found to have elevated liver tests and possible GB mass. # Painless jaundice: Bili 16.4, dilated intahepatic ducts, CBD 7 mm on US, MRCP with mir-hilar obstructing lesion/mass as likely cause of symptoms. CA 19-9 elevated at 62.9, CEA and AFP wnl. # Abnormal liver tests: Cholestatic pattern predominant; no signs of cholangitis at this time # Cholelithiasis?: possible stone seen in fundal area of GB on CT, none on US. # IBS: Unspecified, more dyspeptic symptoms. Not on meds as outpatient. # H/o Zenkers: S/p multiple repairs. "small piece remaining" per patient. Plan: - Plan for ERCP with cholangioscopy on 08/12/18 - EGD prior to eval Zenkers status - NPO at [place] - Supportive care Pt seen and examined with Dr. Mccann; please see attestation for further recs/magalis nges <Alisa Mccann - Last Filed: 08/11/18 20:17> Meds - Medications Medications: Current Medications Acetaminophen (Tylenol 325mg Tab) 650 mg PO Q6 PRN PRN Reason: Pain, Mild (1-3) Enoxaparin Sodium (Lovenox) 40 mg SC DAILY [facility]; Protocol Last Admin: 08/11/18 12:17 Dose: 40 mg Lactated Ringer's (Lactated Ringer's) 1,000 mls @ 125 mls/hr IV .Q8H [facility] Last Admin: 08/11/18 12:16 Dose: Not Given Morphine Sulfate (Morphine) 2 mg IVP Q4 PRN PRN Reason: Pain, severe (8-10) Ondansetron HCl (Zofran Inj) 4 mg IVP Q6 PRN PRN Reason: Nausea/Vomiting Oxycodone HCl (Oxycodone Immediate Release Tab) 5 mg PO Q6 PRN PRN Reason: Pain, moderate (4-7) Pantoprazole Sodium (Protonix Inj) 40 mg IVP DAILY [facility] Last Admin: 08/11/18 12:20 Dose: 40 mg Results - Vital Signs Recent Vital Signs: Last Vital Signs Temp 97.9 F 08/11/18 16:59 Pulse 56 L 08/11/18 16:59 Resp 20 08/11/18 16:59 BP 142/80 08/11/18 16:59 Pulse Ox 96 08/11/18 16:59 - Labs Result Diagrams: 08/11/18 06:00 08/11/18 06:00 Labs: Laboratory Results - last 24 hr 08/10/18 08/11/18 08/11/18 22:24 05:39 06:00 WBC RBC Hgb Hct MCV MCH MCHC RDW Plt Count MPV Neut % (Auto) Lymph % (Auto) [place] % (Auto) Eos % (Auto) Baso % (Auto) Neut # (Auto) Lymph # (Auto) [place] # (Auto) Eos # (Auto) Baso # (Auto) Sodium 138 Potassium 3.7 Chloride 104 Carbon Dioxide 27 Anion Gap 11 BUN 8 L Creatinine 0.8 Est GFR ( Amer) > 60 Est GFR (Non-Af Amer) > 60 POC Glucose (mg/dL) 117 H 102 Random Glucose 110 Calcium 9.1 Phosphorus 3.6 Magnesium 2.2 Total Bilirubin 16.1 H AST 47 ALT 91 H Alkaline Phosphatase 474 H Total Protein 6.7 Albumin 3.2 L Globulin 3.5 Albumin/Globulin Ratio 0.9 L Hepatitis A IgM Ab Hep Bs Antigen Hep B Core IgM Ab Hepatitis C Antibody 08/11/18 08/11/18 06:00 10:07 WBC 4.8 RBC 3.59 L Hgb 10.8 L Hct 32.0 L MCV 89.1 MCH 30.2 MCHC 33.8 RDW 17.9 H Plt Count 258 MPV 9.5 Neut % (Auto) 50.0 Lymph % (Auto) 30.0 [place] % (Auto) 12.3 H Eos % (Auto) 6.3 H Baso % (Auto) 1.4 Neut # (Auto) 2.4 Lymph # (Auto) 1.5 [place] # (Auto) 0.6 Eos # (Auto) 0.3 Baso # (Auto) 0.1 Sodium Potassium Chloride Carbon Dioxide Anion Gap BUN Creatinine Est GFR ( Amer) Est GFR (Non-Af Amer) POC Glucose (mg/dL) Random Glucose Calcium Phosphorus Magnesium Total Bilirubin AST ALT Alkaline Phosphatase Total Protein Albumin Globulin Albumin/Globulin Ratio Hepatitis A IgM Ab Negative Hep Bs Antigen Negative Hep B Core IgM Ab Negative Hepatitis C Antibody Negative Attending/Attestation - Attestation I have personally seen and examined this patient.: Yes I have fully participated in the care of the patient.: Yes I have reviewed all pertinent clinical information: Yes Notes (Text): 08/11/18 20:12 I have seen and examined the patient with the GI fellow. In summary, pt is a 72 yo [place] M visiting his family with PMH of IBS (unspecified) and Zenkers diverticulum (s/p multiple surgical repairs) who p/w jaundice and fatigue x 4 days. Found to have tbili 16.1, AST 47, ALT 91, alk phos 474. MRCP done shows hilar mass, suspicious for Klatskin's tumor. General: jaundiced HEENT: scleral icterus Abd: soft, nt, nd Plan: -highly suspicious for cholangiocarcinoma -npo after midnight -plan for ERCP w/ cholangioscopy w/ bx and possible stent -if unsuccessful, will need b/l PTC -case reviewed with hepatobiliary surgery and IR -plan was extensively discussed with the pt and pt's family who understand risks/benefits and agree to proceed with endoscopic procedures -they plan to have pt return to [facility] after biliary decompression for further treatment options 08/11/18 20:14 08/11/18 20:16
[2018-08-11] MEDS: Enoxaparin 40 mg Syringe SC SCH (12:17)
--- NOTE | 2018-08-11 12:49 | MRI ---
Date of service: 08/11/2018 PROCEDURE: Magnetic Resonance Cholangiopancreatography HISTORY: Elevated total bilirubin, jaundice COMPARISON: None available. TECHNIQUE: Multiplanar, multisequence MR images of the abdomen were obtained, including heavily T2 weighted MRCP images of the biliary system. Rotating maximum intensity projection images of the biliary system were generated. FINDINGS: MRCP: The common bile duct is of a normal caliber. No evidence of choledocholithiasis. No intrahepatic biliary ductal dilatation. LIVER: There is [id number] intrahepatic biliary ductal dilatation more prominent in the central portion and in the left liver lobe. Suspicious for delayed enhancement of liver lesion in the central portion of the right liver lobe/in the fe hepatis region associated with compression or partial obstruction of biliary tree and focal narrowing of the left portal vein. There is a focal area of abnormal signal at the central portion of the liver/fe hepatis region measures 3 x 2.4 centimeter demonstrate mild diffusion restriction and delayed enhancement. The possibility of neoplasm such as cholangiocarcinoma/Klatskin tumor should be considered. The rest of the liver demonstrate homogeneous enhancement. There is with defined hyperintense T2 cyst at the left liver lobe measures 1.3 centimeter. GALLBLADDER: The gallbladder is contracted has curvilinear shape with possible calcification/gallstone. No evidence of acute cholecystitis. SPLEEN: Unremarkable. PANCREAS: Unremarkable. ADRENALS: Unremarkable. KIDNEYS: Unremarkable. AORTA: No aneurysm. ASCITES: None. OTHER FINDINGS: Mildly enlarged lymph nodes noted in the fe hepatis region and pericaval region in the right upper abdomen. IMPRESSION: No evidence of choledocholithiasis or dilated common bile duct. Moderate intrahepatic biliary ductal dilatation more prominent in the central portion of the liver and in the left liver lobe. Suspicious for mass lesion/focal infiltrate with abnormal enhancement at the liver hilum. The possibility of neoplasm such as cholangiocarcinoma Klatskin tumor should be considered. The differential consideration includes central biliary tree stricture due to prior cholangitis or less likely recurrent pyogenic cholangiohepatitis further evaluation by dedicated MRI of the liver with and without contrast with delayed 15 minutes post contrast images or ERCP is suggested. Mildly enlarged lymph nodes at the fe hepatis region. Contracted gallbladder without evidence of acute cholecystitis.
[2018-08-11 16:33] VITALS: BMI 24.1
[2018-08-11 17:27] LABS: HEPATITIS B SURFACE AG Negative (NEGATIVE)
[2018-08-11 17:33] LABS: HEPATITIS A IGM NEGATIVE (NEGATIVE); HEPATITIS B CORE AB NEGATIVE (NEGATIVE)
[2018-08-11 17:44] LABS: HEPATITIS C ANTIBODY NEGATIVE (NEGATIVE)
[2018-08-12] MEDS: Lactated Ringer's 1,000 ML IV SCH ×3 (03:00→20:03)
[2018-08-12 06:25] LABS: BASO # 0.1 K/uL (0.0-0.2); BASO % 1.4 % (0.0-2.0); EOS # 0.3 K/uL (0.0-0.7); EOS % 5.7 % (0.0-4.0); HEMOGLOBIN 11.3 g/dL (12.0-18.0); LYMPH # 1.9 K/uL (1.0-4.3); LYMPH % 37.1 % (20.0-40.0); MEAN CELL VOLUME 89.1 fl (80.0-94.0); MEAN CORPUSCULAR HEMOGLOBIN 30.3 pg (27.0-31.0); MEAN CORPUSCULAR HGB CONC 34.1 g/dL (33.0-37.0); MEAN PLATELET VOLUME 9.4 fl (7.2-11.7); MONO # 0.5 K/uL (0.0-0.8); MONO % 9.4 % (0.0-10.0); NEUT # 2.4 K/uL (1.8-7.0); NEUT % 46.4 % (50.0-75.0); NRBC % 0.1 % (0.0-0.0); RBC 3.73 Mil/uL (4.40-5.90); WHITE BLOOD COUNT 5.2 K/uL (4.8-10.8)
[2018-08-12 06:33] LABS: ALT/SGPT 87 U/L (21-72); AST/SGOT 50 U/L (17-59); BLOOD UREA NITROGEN 7 mg/dl (9-20); CALCIUM 9.6 mg/dL (8.4-10.2); GFR NON-AFRICAN AMERICAN > 60
[2018-08-12 06:39] LABS: ALB/GLOB RATIO 0.9 (1.0-2.1); ALBUMIN 3.3 g/dL (3.5-5.0)
[2018-08-12] MEDS ORDERED: EPINEPHrine 1 mg/ml (1:1000) Inj ONE (07:58)
[2018-08-12] MEDS ORDERED: Glucagon Recombinant 1 mg Inj ONE (07:58)
[2018-08-12] MEDS ORDERED: Iohexol 240 (50 ml) ONE (07:59)
[2018-08-12] MEDS ORDERED: Indomethacin 50 MG Suppository PR ONE ×3 (07:59→15:31)
--- NOTE | 2018-08-12 08:21 | CP.PCM.PN ---
<MargaAmbar grimm - Last Filed: 08/12/18 09:14> Subjective - Date & Time of Evaluation Date of Evaluation: 08/12/18 Time of Evaluation: 08:19 - Subjective Subjective: HBP Surgery Note for Dr. Booth 72 y/o male patient seen and examined at bedside this AM. No acute event overnight. Patient reports intermittent epigastric pain, which has improved. Patient is tolerating diet. Patient scheduled for ERCP today. Denies fever/chil ls or nausea/vomiting. Objective - Vital Signs/Intake and Output Vital Signs (last 24 hours): Temp Pulse Resp BP Pulse Ox 97.8 F 53 L 19 118/72 96 08/12/18 00:05 08/12/18 00:05 08/12/18 00:05 08/12/18 00:05 08/12/18 00:05 - Medications Medications: Current Medications Acetaminophen (Tylenol 325mg Tab) 650 mg PO Q6 PRN PRN Reason: Pain, Mild (1-3) Enoxaparin Sodium (Lovenox) 40 mg SC DAILY [facility]; Protocol Last Admin: 08/11/18 12:17 Dose: 40 mg Lactated Ringer's (Lactated Ringer's) 1,000 mls @ 125 mls/hr IV .Q8H [facility] Last Admin: 08/12/18 03:00 Dose: Not Given Morphine Sulfate (Morphine) 2 mg IVP Q4 PRN PRN Reason: Pain, severe (8-10) Ondansetron HCl (Zofran Inj) 4 mg IVP Q6 PRN PRN Reason: Nausea/Vomiting Oxycodone HCl (Oxycodone Immediate Release Tab) 5 mg PO Q6 PRN PRN Reason: Pain, moderate (4-7) Pantoprazole Sodium (Protonix Inj) 40 mg IVP DAILY [facility] Last Admin: 08/11/18 12:20 Dose: 40 mg - Labs Labs: 08/12/18 06:16 08/12/18 06:16 PT 9.9 Seconds (9.8-13.1) 08/09/18 14:36 INR 0.9 08/09/18 14:36 APTT 38.3 Seconds (25.6-37.1) H 08/09/18 14:36 - Constitutional Appears: Non-toxic, No Acute Distress, Other (jaundiced) - Head Exam Head Exam: ATRAUMATIC, NORMOCEPHALIC - Eye Exam Eye Exam: EOMI, Scleral icterus - ENT Exam ENT Exam: Mucous Membranes Dry - Respiratory Exam Respiratory Exam: NORMAL BREATHING PATTERN. absent: Accessory Muscle Use, Respiratory Distress - Cardiovascular Exam Cardiovascular Exam: Bradycardia - GI/Abdominal Exam GI & Abdominal Exam: Soft, Tenderness, Normal Bowel Sounds. absent: Distended, Firm, Guarding - Back Exam Back Exam: absent: CVA tenderness (L), CVA tenderness (R) - Neurological Exam Neurological Exam: Alert, Awake, Oriented x3 - Psychiatric Exam Psychiatric exam: Normal Affect, Normal Mood - Skin Skin Exam: Dry, Warm Additional comments: jaundice Assessment and Plan - Assessment and Plan (Free Text) Assessment: 72 y/o male who presents with hyperbilirubinemia and dilated intrahepatic ducts Plan: -NPO at this time -pain control -Continue IV Fluids -F/U ERCP, may need PTC with brushings -trend LFTs Further recommendations as per Dr Gutierrez PGY1 <Nader Leon - Last Filed: 08/15/18 10:33> Objective - Vital Signs/Intake and Output Vital Signs (last 24 hours): Temp Pulse Resp BP Pulse Ox 98.7 F 81 18 179/98 H 97 08/15/18 08:03 08/15/18 08:03 08/15/18 08:03 08/15/18 08:03 08/15/18 08:03 Intake and Output: 08/15/18 08/15/18 06:59 18:59 Intake Total 2550 Output Total 820 Balance 1730 - Medications Medications: Current Medications Acetaminophen (Tylenol 325mg Tab) 650 mg PO Q6 PRN PRN Reason: Pain, Mild (1-3) Enoxaparin Sodium (Lovenox) 40 mg SC DAILY [facility]; Protocol Last Admin: 08/11/18 12:17 Dose: 40 mg Hydromorphone HCl (Dilaudid) 0.5 mg IVP Q2 PRN PRN Reason: Pain, moderate (4-7) Last Admin: 08/15/18 09:23 Dose: 0.5 mg Lactated Ringer's (Lactated Ringer's) 1,000 mls @ 250 mls/hr IV .Q4H [facility] Last Admin: 08/15/18 09:07 Dose: 250 mls/hr Metronidazole (Flagyl 500mg/100ml Ns) 100 mls @ 100 mls/hr IVPB Q12 [facility]; Protocol Last Admin: 08/14/18 20:44 Dose: 100 mls/hr Ampicillin Sodium/Sulbactam (Sodium 3 gm/ Sodium Chloride) 100 mls @ 100 mls/hr IVPB Q8 [facility] Last Admin: 08/15/18 09:08 Dose: 100 mls/hr Ceftriaxone Sodium 1 gm/ (Sodium Chloride) 100 mls @ 100 mls/hr IVPB Q12H [facility] Last Admin: 08/14/18 20:37 Dose: 100 mls/hr Fluconazole (Diflucan Iv 200 Mg/100 Ml Ns) 100 mls @ 100 mls/hr IVPB DAILY [facility] Ondansetron HCl (Zofran Inj) 4 mg IVP Q6 PRN PRN Reason: Nausea/Vomiting Oxycodone HCl (Oxycodone Immediate Release Tab) 5 mg PO Q6 PRN PRN Reason: Pain, moderate (4-7) Last Admin: 08/15/18 04:55 Dose: 5 mg Pantoprazole Sodium (Protonix Inj) 40 mg IVP DAILY [facility] Last Admin: 08/14/18 09:04 Dose: 40 mg - Labs Labs: 08/14/18 09:40 08/14/18 09:40 PT 9.9 Seconds (9.8-13.1) 08/09/18 14:36 INR 0.9 08/09/18 14:36 APTT 38.3 Seconds (25.6-37.1) H 08/09/18 14:36 Assessment and Plan - Assessment and Plan (Free Text) Plan: All medical record entries made by the resident were at my direction. I have reviewed the chart and agree that the record accurately reflects my personal performance of the history, physical exam, medical decision making. I have also personally examined the patient, reviewed, and agree the resident note.
[2018-08-12] MEDS ORDERED: Lactated Ringer's 500 ML IV ONE ×3 (10:52→15:26)
[2018-08-12] MEDS ORDERED: Ciprofloxacin 400mg/200ml D5W 400 MG/200 ML BAG IVPB STA (11:06)
[2018-08-12] MEDS ORDERED: Midazolam 2 MG/2 ML VIAL ONE (11:17)
[2018-08-12] MEDS ORDERED: ePHEDrine 50 mg/ml Inj ONE (11:17)
[2018-08-12] MEDS ORDERED: Propofol 10 mg/ml Inj (20 ML) ONE (11:18)
[2018-08-12] MEDS ORDERED: Dexamethasone 4 mg/1 ml ONE (11:18)
[2018-08-12] MEDS ORDERED: Desflurane Inhalation Anesthetic Liq (240 ml) ONE (13:51)
[2018-08-12] MEDS: oxyCODONE 5 mg Immediate Release Tab PO PRN (20:14)
[2018-08-12] MEDS: Ciprofloxacin 400mg/200ml D5W 400 MG/200 ML BAG IVPB SCH (20:19)
[2018-08-13] MEDS: Lactated Ringer's 500 ML IV SCH ×3 (01:36→13:08)
[2018-08-13] MEDS: Lactated Ringer's 1,000 ML IV SCH ×3 (03:33→19:45)
[2018-08-13] MEDS ORDERED: EPINEPHrine 1 mg/ml (1:1000) Inj ONE (08:04)
[2018-08-13] MEDS: Ciprofloxacin 400mg/200ml D5W 400 MG/200 ML BAG IVPB SCH ×2 (09:31→20:57)
[2018-08-13 09:55] LABS: HEMOGLOBIN 11.4 g/dL (12.0-18.0); MEAN CELL VOLUME 88.2 fl (80.0-94.0); MEAN CORPUSCULAR HEMOGLOBIN 29.7 pg (27.0-31.0); MEAN CORPUSCULAR HGB CONC 33.7 g/dL (33.0-37.0); RBC 3.82 Mil/uL (4.40-5.90); RED CELL DISTRIBUTION WIDTH 18.5 % (11.5-14.5); WHITE BLOOD COUNT 10.3 K/uL (4.8-10.8)
[2018-08-13 10:18] LABS: ALBUMIN 3.5 g/dL (3.5-5.0); ALT/SGPT 117 U/L (21-72); AST/SGOT 118 U/L (17-59); BLOOD UREA NITROGEN 11 mg/dl (9-20); CALCIUM 9.4 mg/dL (8.4-10.2); GFR NON-AFRICAN AMERICAN > 60
--- NOTE | 2018-08-13 12:57 | RAD ---
Date of service: 08/13/2018 PROCEDURE: CHEST RADIOGRAPH, 1 VIEW HISTORY: Rule out air under diaphram COMPARISON: None available. FINDINGS: LUNGS: Left lung base subsegmental atelectasis and/or scarring. Symmetrical thoracic inlet and cervical level extensive subcutaneous emphysema PLEURA: No pneumothorax. Trace left pleural effusion suggested CARDIOVASCULAR: There is presence of aortic atherosclerotic calcification on x-ray. Heart size probably top-normal.. OSSEOUS STRUCTURES: No significant abnormalities. VISUALIZED UPPER ABDOMEN: S contrast within the bowel. There does appear to be somewhat air-fluid levels on this study-the study is not however marked upright. A semi upright to upright position however is believed most likely. No gross or definitive subdiaphragmatic free air seen. If clinically indicated, consider repeat chest x-ray upright study with labeling upright position OTHER FINDINGS: None. IMPRESSION: The current study is probably at minimum semi-erect. No labeling is provided. Air-fluid levels in the bowel are present. This fluid is a contrast in the bowel. No large amount of subdiaphragmatic free air is appreciated. Minimal and mild amount of subdiaphragmatic air would be difficult to exclude on this exam. There is extensive symmetrical subcutaneous emphysema at the thoracic inlet and the neck level. If there is clinical concern for possible this case perforation, the more sensitive exam would be CT of the abdomen and pelvis.
[2018-08-13] MEDS ORDERED: Iodixanol 320 MG/ML 100 ML BOTTLE IV ONE (13:23)
[2018-08-13] MEDS ORDERED: Lidocaine Hydrochloride 1% 10 ML ONE (13:29)
--- NOTE | 2018-08-13 13:29 | CP.PCM.PN ---
<Matthew Gonzalez - Last Filed: 08/13/18 14:07> Subjective - Date & Time of Evaluation Date of Evaluation: 08/13/18 Time of Evaluation: 13:00 - Subjective Subjective: PGY-4 GI Fellow Prog Note Unable to assess patient as was in sterile procedure with IR during rounds. Pt reportedly had been doing OK but complained of some upper chest discomfort, recent CXR revealed subcutaneous air near neck. Unable to obtain ROS due to patient in procedure Objective - Vital Signs/Intake and Output Vital Signs (last 24 hours): Temp Pulse Resp BP Pulse Ox 98.3 F 66 20 146/84 96 08/13/18 07:38 08/13/18 07:38 08/13/18 07:38 08/13/18 07:38 08/13/18 07:38 - Medications Medications: Current Medications Acetaminophen (Tylenol 325mg Tab) 650 mg PO Q6 PRN PRN Reason: Pain, Mild (1-3) Enoxaparin Sodium (Lovenox) 40 mg SC DAILY [facility]; Protocol Last Admin: 08/11/18 12:17 Dose: 40 mg Lactated Ringer's (Lactated Ringer's) 1,000 mls @ 125 mls/hr IV .Q8H [facility] Last Admin: 08/13/18 13:08 Dose: Not Given Ciprofloxacin (Cipro 400mg/200ml Dsw) 400 mg in 200 mls @ 200 mls/hr IVPB Q12 [facility]; Protocol Last Admin: 08/13/18 09:31 Dose: 200 mls/hr Lactated Ringer's (Lactated Ringer's 500ml) 500 mls @ 75 mls/hr IV .Q6H40M [facility] Last Admin: 08/13/18 13:08 Dose: Not Given Morphine Sulfate (Morphine) 2 mg IVP Q4 PRN PRN Reason: Pain, severe (8-10) Last Admin: 08/13/18 08:15 Dose: 2 mg Ondansetron HCl (Zofran Inj) 4 mg IVP Q6 PRN PRN Reason: Nausea/Vomiting Oxycodone HCl (Oxycodone Immediate Release Tab) 5 mg PO Q6 PRN PRN Reason: Pain, moderate (4-7) Last Admin: 08/12/18 20:14 Dose: 5 mg Pantoprazole Sodium (Protonix Inj) 40 mg IVP DAILY [facility] Last Admin: 08/13/18 09:38 Dose: 40 mg - Labs Labs: 08/13/18 09:30 08/13/18 09:30 PT 9.9 Seconds (9.8-13.1) 08/09/18 14:36 INR 0.9 08/09/18 14:36 APTT 38.3 Seconds (25.6-37.1) H 08/09/18 14:36 Assessment and Plan - Assessment and Plan (Free Text) Assessment: 72 yo M presenting with jaundice, fatigue, diarrhea found to have elevated liver tests and possible GB mass. 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 CA 19-9 elevated at 62.9, CEA and AFP wnl. # Abnormal liver tests: Cholestatic pattern predominant; no signs of cholangitis at this time # IBS: Unspecified, more dyspeptic symptoms. Not on meds as outpatient. # H/o Zenkers: S/p multiple repairs. "small piece remaining" per patient. Plan: - S/p ERCP with cholangioscopy with biopsy of biliary hilar sticture/mass biopsy --- Biliary stent place in L hepatic duct --- Unable to place R duct stent endoscopically - Pt in IR to receive PTC - Cont Ciprofloxacin 400 BID - Monitor labs - Added CT neck to CT chest given signs of subcutaneous air on CXR (perf?) - NPO until CT neck and chest done Unable to physically examine pt as undergoing procedure during rounds. But meet with family at bedside and conferred plan to primary team. Case discussed with Dr. Mccann please see attestation for further recs/changes. <Alisa Mccann - Last Filed: 08/13/18 18:56> Objective - Vital Signs/Intake and Output Vital Signs (last 24 hours): Temp Pulse Resp BP Pulse Ox 99.0 F 72 19 160/89 H 95 08/13/18 17:06 08/13/18 17:06 08/13/18 17:06 08/13/18 17:06 08/13/18 17:06 Intake and Output: 08/13/18 08/13/18 06:59 18:59 Intake Total 50 Balance 50 - Medications Medications: Current Medications Acetaminophen (Tylenol 325mg Tab) 650 mg PO Q6 PRN PRN Reason: Pain, Mild (1-3) Enoxaparin Sodium (Lovenox) 40 mg SC DAILY [facility]; Protocol Last Admin: 08/11/18 12:17 Dose: 40 mg Lactated Ringer's (Lactated Ringer's) 1,000 mls @ 125 mls/hr IV .Q8H [facility] Last Admin: 08/13/18 13:08 Dose: Not Given Ciprofloxacin (Cipro 400mg/200ml Dsw) 400 mg in 200 mls @ 200 mls/hr IVPB Q12 [facility]; Protocol Last Admin: 08/13/18 09:31 Dose: 200 mls/hr Morphine Sulfate (Morphine) 2 mg IVP Q4 PRN PRN Reason: Pain, severe (8-10) Last Admin: 08/13/18 08:15 Dose: 2 mg Ondansetron HCl (Zofran Inj) 4 mg IVP Q6 PRN PRN Reason: Nausea/Vomiting Oxycodone HCl (Oxycodone Immediate Release Tab) 5 mg PO Q6 PRN PRN Reason: Pain, moderate (4-7) Last Admin: 08/12/18 20:14 Dose: 5 mg Pantoprazole Sodium (Protonix Inj) 40 mg IVP DAILY [facility] Last Admin: 08/13/18 09:38 Dose: 40 mg - Labs Labs: 08/13/18 09:30 08/13/18 09:30 PT 9.9 Seconds (9.8-13.1) 08/09/18 14:36 INR 0.9 08/09/18 14:36 APTT 38.3 Seconds (25.6-37.1) H 08/09/18 14:36 Attending/Attestation - Attestation I have personally seen and examined this patient.: No I have fully participated in the care of the patient.: Yes I have reviewed all pertinent clinical information, including history, physical exam and plan: Yes Notes (Text): 08/13/18 18:35 I have discussed the case with the GI fellow. In summary, pt is a 72 yo Hebrew M visiting his family with PMH of IBS (unspecified) and Zenkers diverticulum (s/p multiple surgical repairs) who p/w jaundice and fatigue x 4 days. Found to have tbili 16.1, AST 47, ALT 91, alk phos 474. MRCP done shows hilar mass, suspicious for Klatskin's tumor. S/p ERCP yesterday with placement of plastic CBD stent extending to the L intrahepatic duct. Did not examine the pt as he was getting PTC. Reviewed CXR and CT neck. Plan: -? source of free air in the neck, but concerning for perforation (? 2/2 Zenker's diverticulum) -check am labs -continue cipro 400 mg iv bid -f/u path -will need barium swallow tmrw -would hold off on NGT for now -discussed radiology findings and plan with Duncan, pt's son 08/13/18 18:56
--- NOTE | 2018-08-13 14:32 | PCM.SURG1 ---
Surgeon's Initial Post Op Note - Surgeon's Notes Surgeon: Jesus Manuel Maria MD Fire Management Specialist: NONE Pre-Operative Diagnosis: Biliary obstruction, jaundice Operative Findings: Per. cholangiogram showed right intrahepatic biliary dilatation secondary to obstruction of proximal right hepatic bile duct extending into CBD. Post-Operative Diagnosis: Biliary obstruction, jaundice Operation Performed: Perc. cholangiogram and placement of an 8 Fr biliary drain. Specimen/Specimens Removed: NONE Estimated Blood Loss: EBL {In ML}: 5 Blood Products Given: N/A Post-Op Condition: Fair Date of Surgery/Procedure: 08/13/18 Time of Surgery/Procedure: 14:25
[2018-08-13] MEDS ORDERED: Sodium Chloride 0.9% 250 ML IV ONE (14:35)
--- NOTE | 2018-08-13 17:59 | CT ---
Date of service: 08/13/2018 PROCEDURE: CT NECK WITHOUT CONTRAST HISTORY: Subcutaneous air on CXR COMPARISON: None available. TECHNIQUE: CT of the neck without intravenous contrast. Coronal and sagittal reformats generated. Radiation dose: Total exam DLP = 241.28 mGy-cm. This CT exam was performed using one or more of the following dose reduction techniques: Automated exposure control, adjustment of the mA and/or kV according to patient size, and/or use of iterative reconstruction technique. FINDINGS: NASOPHARYNX: Unremarkable. SUPRAHYOID NECK: Extensive subcutaneous emphysema about the neck. There is gas dissecting about the carotid sheaths bilaterally. Gas dissects along the sternocleidomastoid muscles. There is gas seen in the retropharyngeal soft tissues. INFRAHYOID NECK: Unremarkable MASS: None. GLANDS: Parotid and submandibular glands unremarkable. Bilateral thyroid masses, 2.3 cm on the left and 2 right masses, 1.6 and 1.7 cm. LYMPH NODES: Normal. No lymphadenopathy. CERVICAL SPINE: No fracture or focal lesion. OTHER FINDINGS: There is pneumomediastinum. There is subcutaneous emphysema seen over the upper chest wall. IMPRESSION: Pneumomediastinum and extensive subcutaneous emphysema of the neck. The source of the gas is not clear from this examination. Bilateral thyroid nodules. Correlate with thyroid ultrasound examination.
--- NOTE | 2018-08-13 18:36 | CT ---
Date of service: 08/13/2018 PROCEDURE: CT Chest without contrast HISTORY: Eval for metastatic disease COMPARISON: None available. TECHNIQUE: Contiguous axial images were obtained through the chest without intravenous contrast enhancement. Sagittal and coronal reconstructions were performed. Radiation dose (DLP): 668.48 mGy-cm. This CT exam was performed using one or more of the following dose reduction techniques: Automated exposure control, adjustment of the mA and/or kV according to patient size, and/or use of iterative reconstruction technique. FINDINGS: LUNGS: Linear scar/atelectasis left lower lobe. No pulmonary infiltrate. No pulmonary mass. MEDIASTINUM: There is aneurysmal dilatation of the ascending thoracic aorta to a diameter of 4.6 cm peer normal sized heart. Main pulmonary artery unremarkable. No vascular congestion. No lymphadenopathy. There is extensive pneumomediastinum. This dissects upward into the neck. Please see report of CT neck of the same date. There is no pneumothorax. There is atherosclerotic calcification of the thoracic aorta. PLEURA: Trace right pleural effusion. BONES: There is hemangiomatous change of the pedicles bilaterally at the T11 level. There is a hemangioma at T10. There is a hemangioma at L1. No lytic or blastic osseous lesion is appreciated UPPER ABDOMEN: There is gas seen in the retroperitoneum, right greater than left. There is gas surrounding the inferior vena cava. There is gas seen about the pancreas. Gas is seen about the right kidney in the pararenal and perinephric space. There is gas seen lateral to the right lobe of the liver but there is no intraperitoneal gas definitely identified. This is likely extraperitoneal gas lateral to the liver. There is dense intrahepatic biliary contrast status post percutaneous cholangiography. There is a small amount of intrahepatic biliary gas likely as a result of the procedure. There is stranding of the perianal pancreatic fat consistent with acute pancreatitis. There is no gordo peripancreatic fluid collection. There is no pneumatosis coli seen in the upper abdomen. OTHER FINDINGS: None. IMPRESSION: Pneumomediastinum. No pneumothorax. Retroperitoneal gas. Extraperitoneal gas lateral to the liver. Probable acute pancreatitis. Minimal intrahepatic biliary gas likely related to the procedure performed on the same date.
[2018-08-13] MEDS: oxyCODONE 5 mg Immediate Release Tab PO PRN (21:10)
[2018-08-14] MEDS: Lactated Ringer's 1,000 ML IV SCH ×2 (02:26→23:12)
[2018-08-14] MEDS: oxyCODONE 5 mg Immediate Release Tab PO PRN (02:30)
[2018-08-14 05:31] LABS: BASO # 0.1 K/uL (0.0-0.2); BASO % 0.5 % (0.0-2.0); EOS % 0.1 % (0.0-4.0); HEMOGLOBIN 10.2 g/dL (12.0-18.0); LYMPH # 3.3 K/uL (1.0-4.3); LYMPH % 28.5 % (20.0-40.0); MEAN CELL VOLUME 87.8 fl (80.0-94.0); MEAN CORPUSCULAR HEMOGLOBIN 30.3 pg (27.0-31.0); MEAN CORPUSCULAR HGB CONC 34.5 g/dL (33.0-37.0); MEAN PLATELET VOLUME 9.5 fl (7.2-11.7); MONO # 0.9 K/uL (0.0-0.8); MONO % 7.6 % (0.0-10.0); NEUT # 7.4 K/uL (1.8-7.0); NEUT % 63.3 % (50.0-75.0); RBC 3.36 Mil/uL (4.40-5.90); RED CELL DISTRIBUTION WIDTH 18.8 % (11.5-14.5); WHITE BLOOD COUNT 11.7 K/uL (4.8-10.8)
[2018-08-14] MEDS ORDERED: Diatriz Meglumine/Diatriz Sod 30 ML BOTTLE PO ONE (08:23)
--- NOTE | 2018-08-14 08:29 | CP.PCM.PN ---
<Leighton Terry - Last Filed: 08/14/18 08:26> Subjective - Date & Time of Evaluation Date of Evaluation: 08/13/18 Time of Evaluation: 09:00 - Subjective Subjective: Hepatobiliary progress note for Dr. Leon This 72M was seen and exmained this Am at bedside. COmplains of abdominal pain that started overnight. He reports he has not moved his bowels in two days or pased gas. He denies chest pain or SOB. He had questions about his clinical plan and all questions were addressed. Objective - Vital Signs/Intake and Output Vital Signs (last 24 hours): Temp Pulse Resp BP Pulse Ox 99.1 F 95 H 18 156/93 H 94 L 08/14/18 08:05 08/14/18 08:05 08/14/18 08:05 08/14/18 08:05 08/14/18 08:05 - Medications Medications: Current Medications Acetaminophen (Tylenol 325mg Tab) 650 mg PO Q6 PRN PRN Reason: Pain, Mild (1-3) Enoxaparin Sodium (Lovenox) 40 mg SC DAILY [facility]; Protocol Last Admin: 08/11/18 12:17 Dose: 40 mg Hydromorphone HCl (Dilaudid) 0.5 mg IVP Q2 PRN PRN Reason: Pain, moderate (4-7) Ciprofloxacin (Cipro 400mg/200ml Dsw) 400 mg in 200 mls @ 200 mls/hr IVPB Q12 [facility]; Protocol Last Admin: 08/13/18 20:57 Dose: 200 mls/hr Lactated Ringer's (Lactated Ringer's) 1,000 mls @ 250 mls/hr IV .Q4H [facility] Ceftriaxone Sodium 1,000 mg/ (PED IV SYRINGE) 0 mls @ 100 mls/hr IVPB Q12 [facility]; Protocol FLUCONAZOLE IN DEXTROSE (Fluconazole-Dext 200 Mg/100 Ml) 200 mg in 100 mls @ 100 mls/hr IVPB DAILY [facility] Metronidazole (Flagyl 500mg/100ml Ns) 100 mls @ 100 mls/hr IVPB Q12 [facility]; Protocol Ampicillin Sodium/Sulbactam (Sodium 3 gm/ Sodium Chloride) 100 mls @ 100 mls/hr IVPB Q8 [facility] Morphine Sulfate (Morphine) 2 mg IVP Q4 PRN PRN Reason: Pain, severe (8-10) Last Admin: 08/14/18 04:35 Dose: 2 mg Ondansetron HCl (Zofran Inj) 4 mg IVP Q6 PRN PRN Reason: Nausea/Vomiting Oxycodone HCl (Oxycodone Immediate Release Tab) 5 mg PO Q6 PRN PRN Reason: Pain, moderate (4-7) Last Admin: 08/14/18 02:30 Dose: 5 mg Pantoprazole Sodium (Protonix Inj) 40 mg IVP DAILY [facility] Last Admin: 08/13/18 09:38 Dose: 40 mg - Labs Labs: 08/14/18 05:17 08/13/18 09:30 PT 9.9 Seconds (9.8-13.1) 08/09/18 14:36 INR 0.9 08/09/18 14:36 APTT 38.3 Seconds (25.6-37.1) H 08/09/18 14:36 - Constitutional Appears: Non-toxic, No Acute Distress, Other (jaundiced) - Head Exam Head Exam: ATRAUMATIC, NORMOCEPHALIC - Eye Exam Eye Exam: EOMI, Scleral icterus - ENT Exam ENT Exam: Mucous Membranes Dry - Respiratory Exam Respiratory Exam: NORMAL BREATHING PATTERN. absent: Accessory Muscle Use, Respiratory Distress - Cardiovascular Exam Cardiovascular Exam: Bradycardia - GI/Abdominal Exam GI & Abdominal Exam: Soft, Tenderness, Normal Bowel Sounds. - Back Exam Back Exam: absent: CVA tenderness (L), CVA tenderness (R) - Neurological Exam Neurological Exam: Alert, Awake, Oriented x3 - Psychiatric Exam Psychiatric exam: Normal Affect, Normal Mood - Skin Skin Exam: Dry, Warm Additional comments: jaundice Assessment and Plan - Assessment and Plan (Free Text) Assessment: 72 y/o male who presents with hyperbilirubinemia and dilated intrahepatic ducts Plan: -NPO at this time -pain control -Continue IV Fluids -F/U PTC - Check amylase and lipase - Abdominal Xray -trend LFTs Further recommendations as per Dr Booth <Nader Leon - Last Filed: 08/16/18 09:45> Objective - Vital Signs/Intake and Output Vital Signs (last 24 hours): Temp Pulse Resp BP Pulse Ox 98.3 F 80 20 171/98 H 94 L 08/16/18 08:30 08/16/18 08:30 08/16/18 08:30 08/16/18 08:30 08/16/18 08:30 Intake and Output: 08/16/18 08/16/18 06:59 18:59 Intake Total 2720 Output Total 1220 Balance 1500 - Medications Medications: Current Medications Acetaminophen (Tylenol 325mg Tab) 650 mg PO Q6 PRN PRN Reason: Pain, Mild (1-3) Docusate Sodium (Colace) 100 mg PO DAILY [facility] Last Admin: 08/16/18 09:30 Dose: 100 mg Enoxaparin Sodium (Lovenox) 40 mg SC DAILY [facility]; Protocol Last Admin: 08/11/18 12:17 Dose: 40 mg Hydromorphone HCl (Dilaudid) 0.5 mg IVP Q2 PRN PRN Reason: Pain, moderate (4-7) Last Admin: 08/16/18 09:27 Dose: 0.5 mg Metronidazole (Flagyl 500mg/100ml Ns) 100 mls @ 100 mls/hr IVPB Q12 [facility]; Protocol Last Admin: 08/16/18 09:37 Dose: 100 mls/hr Ampicillin Sodium/Sulbactam (Sodium 3 gm/ Sodium Chloride) 100 mls @ 100 mls/hr IVPB Q8 [facility] Last Admin: 08/16/18 09:31 Dose: 100 mls/hr Ceftriaxone Sodium 1 gm/ (Sodium Chloride) 100 mls @ 100 mls/hr IVPB Q12H [facility] Last Admin: 08/16/18 09:32 Dose: 100 mls/hr Fluconazole (Diflucan Iv 200 Mg/100 Ml Ns) 100 mls @ 100 mls/hr IVPB DAILY [facility] Last Admin: 08/16/18 09:29 Dose: 100 mls/hr Potassium Chloride (Potassium Chloride 20 Meq/100 Ml) 100 mls @ 50 mls/hr IVPB Q2 [facility] Stop: 08/16/18 15:59 Ondansetron HCl (Zofran Inj) 4 mg IVP Q6 PRN PRN Reason: Nausea/Vomiting Pantoprazole Sodium (Protonix Inj) 40 mg IVP DAILY [facility] Last Admin: 08/16/18 09:36 Dose: 40 mg Polyethylene Glycol (Miralax) 17 gm PO DAILY [facility] Last Admin: 08/16/18 09:37 Dose: 17 gm Ursodiol (Actigall) 300 mg PO BID [facility] Last Admin: 08/15/18 18:37 Dose: 300 mg - Labs Labs: 08/16/18 05:41 08/16/18 05:41 PT 9.9 Seconds (9.8-13.1) 08/09/18 14:36 INR 0.9 08/09/18 14:36 APTT 38.3 Seconds (25.6-37.1) H 08/09/18 14:36 Assessment and Plan - Assessment and Plan (Free Text) Assessment: All medical record entries made by the resident were at my direction. I have reviewed the chart and agree that the record accurately reflects my personal performance of the history, physical exam, and medical decision making for this patient.
[2018-08-14] MEDS ORDERED: cefTRIAXone 1,000 MG in PED IV SYRINGE 1 SYR IVPB SCH (09:00)
[2018-08-14] MEDS ORDERED: FLUCONAZOLE IN DEXTROSE 200 MG/100 ML PIGGYBACK IVPB SCH (09:00)
[2018-08-14] MEDS: Ciprofloxacin 400mg/200ml D5W 400 MG/200 ML BAG IVPB SCH (09:02)
[2018-08-14] MEDS ORDERED: Barium Sulfate Susp 0.1% w/v, 0.1% w/w 450 mL Bottle PO ONE (09:20)
[2018-08-14 10:06] LABS: HEMOGLOBIN 10.3 g/dL (12.0-18.0); MEAN CELL VOLUME 88.6 fl (80.0-94.0); MEAN CORPUSCULAR HEMOGLOBIN 29.9 pg (27.0-31.0); MEAN CORPUSCULAR HGB CONC 33.8 g/dL (33.0-37.0); RBC 3.46 Mil/uL (4.40-5.90); RED CELL DISTRIBUTION WIDTH 18.4 % (11.5-14.5); WHITE BLOOD COUNT 13.7 K/uL (4.8-10.8)
[2018-08-14 10:31] LABS: ALBUMIN 3.5 g/dL (3.5-5.0); ALT/SGPT 165 U/L (21-72); AST/SGOT 194 U/L (17-59); BLOOD UREA NITROGEN 15 mg/dl (9-20); CALCIUM 9.1 mg/dL (8.4-10.2); GFR NON-AFRICAN AMERICAN > 60
--- NOTE | 2018-08-14 11:06 | RAD ---
Date of service: 08/14/2018 HISTORY: Dysphagia. COMPARISON: None. TECHNIQUE: An esophagram was performed under fluoroscopic control using Gastrografin initially, followed by low density barium oral contrast. 3 views obtained. 2.6 min of fluoro time was utilized with a total radiation dose of 77.630 mGy. FINDINGS: Patient tolerated procedure well. ESOPHAGUS: Initial imaging through Gastrografin esophagram revealed a posterior diverticulum at the region of the cricopharyngeal junction on added imaging is felt to be present at the midline and therefore suspicious for a relatively large Zenker's diverticulum estimated to be 3.5 cm greatest dimension though this is not a digital measurement. No digital measuring tool is available on fluoroscopy. No extravasation of oral contrast was demonstrated with the esophagus appearing ectatic distally based on the frontal projection shifting from right parasagittal left parasagittal position proximal to penetrating the hiatus. A small sliding hiatal hernia was encountered well as relatively prominent gastroesophageal reflux. Single density barium also fail demonstrate evidence of extravasation. No prominent mucosal abnormality is appreciated or suspicious filling defect or contrast collection. No obstruction of the flow of oral contrast material was encountered. Occasional tertiary contractions were encountered in the exam somewhat. Suspicious oral contrast collection is demonstrated on post procedure chest radiographs. OTHER FINDINGS: None. IMPRESSION: 1. No fluoroscopic evidence to suggest extravasation oral contrast into the neck or mediastinum as per above. 2. Prominent gastroesophageal reflux. Occasional tertiary contractions inhibited the flow oral contrast through the esophagus. 3. No constricting or obstructing mass appreciable. 4. Relatively prominent Zenker's diverticulum identified approximately 3.5 cm greatest dimension.
--- NOTE | 2018-08-14 12:24 | CP.PCM.PN ---
<Matthew Gonzalez - Last Filed: 08/14/18 13:45> Subjective - Date & Time of Evaluation Date of Evaluation: 08/14/18 Time of Evaluation: 12:00 - Subjective Subjective: PGY-4 GI Fellow Prog Note Pt lying in bed when seen today. States some abd pain that is relieved with pain medication. Eager to eat. States has not had flatus nor BM since procedure on Saturday 5 point ROS negative other than stated above Objective - Vital Signs/Intake and Output Vital Signs (last 24 hours): Temp Pulse Resp BP Pulse Ox 98.8 F 99 H 18 147/89 95 08/14/18 12:06 08/14/18 12:06 08/14/18 12:06 08/14/18 12:06 08/14/18 12:06 - Medications Medications: Current Medications Acetaminophen (Tylenol 325mg Tab) 650 mg PO Q6 PRN PRN Reason: Pain, Mild (1-3) Enoxaparin Sodium (Lovenox) 40 mg SC DAILY [facility]; Protocol Last Admin: 08/11/18 12:17 Dose: 40 mg Hydromorphone HCl (Dilaudid) 0.5 mg IVP Q2 PRN PRN Reason: Pain, moderate (4-7) Last Admin: 08/14/18 09:02 Dose: 0.5 mg Ciprofloxacin (Cipro 400mg/200ml Dsw) 400 mg in 200 mls @ 200 mls/hr IVPB Q12 [facility]; Protocol Last Admin: 08/14/18 09:02 Dose: 200 mls/hr Lactated Ringer's (Lactated Ringer's) 1,000 mls @ 250 mls/hr IV .Q4H [facility] FLUCONAZOLE IN DEXTROSE (Fluconazole-Dext 200 Mg/100 Ml) 200 mg in 100 mls @ 100 mls/hr IVPB DAILY [facility] Metronidazole (Flagyl 500mg/100ml Ns) 100 mls @ 100 mls/hr IVPB Q12 [facility]; Protocol Ampicillin Sodium/Sulbactam (Sodium 3 gm/ Sodium Chloride) 100 mls @ 100 mls/hr IVPB Q8 [facility] Ceftriaxone Sodium 1 gm/ (Sodium Chloride) 100 mls @ 100 mls/hr IVPB Q12H [facility] Ondansetron HCl (Zofran Inj) 4 mg IVP Q6 PRN PRN Reason: Nausea/Vomiting Oxycodone HCl (Oxycodone Immediate Release Tab) 5 mg PO Q6 PRN PRN Reason: Pain, moderate (4-7) Last Admin: 08/14/18 02:30 Dose: 5 mg Pantoprazole Sodium (Protonix Inj) 40 mg IVP DAILY [facility] Last Admin: 08/14/18 09:04 Dose: 40 mg - Labs Labs: 08/14/18 09:40 08/14/18 09:40 PT 9.9 Seconds (9.8-13.1) 08/09/18 14:36 INR 0.9 08/09/18 14:36 APTT 38.3 Seconds (25.6-37.1) H 08/09/18 14:36 - Constitutional Appears: Well, No Acute Distress, Other (Jaundice) - Head Exam Head Exam: ATRAUMATIC, NORMAL INSPECTION - Eye Exam Eye Exam: EOMI, Scleral icterus - ENT Exam ENT Exam: Mucous Membranes Dry. absent: Mucous Membranes Moist - Respiratory Exam Respiratory Exam: NORMAL BREATHING PATTERN. absent: Accessory Muscle Use - GI/Abdominal Exam GI & Abdominal Exam: Distended (mildly), Guarding (voluntary), Soft, Tenderness (diffusely but worse in RLQ), Hypoactive Bowel Sounds, Normal Bowel Sounds. absent: Bruit, Firm, Rigid - Skin Additional comments: jaundiced with palpable crepitus over clavicles Assessment and Plan - Assessment and Plan (Free Text) Assessment: 72 yo M presenting with jaundice, fatigue, diarrhea found to have elevated liver tests and possible GB mass. 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 CA 19-9 elevated at 62.9, CEA and AFP wnl. # Abnormal liver tests: Cholestatic pattern predominant; no signs of cholangitis at this time # IBS: Unspecified, more dyspeptic symptoms. Not on meds as outpatient. # H/o Zenkers: S/p multiple repairs. "small piece remaining" per patient. # Pneumomediastinum, Subcutaneous air: ?microperf/leak post ERCP in setting of Zenkers? Esophagram without signs of perforation. Plan: - S/p ERCP with cholangioscopy with biopsy of biliary hilar sticture/mass biopsy --- Biliary stent place in L hepatic duct --- Unable to place R duct stent endoscopically - IR placed R duct PTC drain 08/13/18 --- Drain clogged? Dr. Booth and IR to address with flush, possible cholangiography - Cont Abx x 7 days - Clear Liq diet trial tonight for dinner - Monitor labs Case discussed with Dr. Mccann please see attestation for further recs/changes. <Alisa Mccann - Last Filed: 08/14/18 14:06> Objective - Vital Signs/Intake and Output Vital Signs (last 24 hours): Temp Pulse Resp BP Pulse Ox 98.8 F 99 H 18 147/89 95 08/14/18 12:06 08/14/18 12:06 08/14/18 12:06 08/14/18 12:06 08/14/18 12:06 - Medications Medications: Current Medications Acetaminophen (Tylenol 325mg Tab) 650 mg PO Q6 PRN PRN Reason: Pain, Mild (1-3) Enoxaparin Sodium (Lovenox) 40 mg SC DAILY [facility]; Protocol Last Admin: 08/11/18 12:17 Dose: 40 mg Hydromorphone HCl (Dilaudid) 0.5 mg IVP Q2 PRN PRN Reason: Pain, moderate (4-7) Last Admin: 08/14/18 13:04 Dose: 0.5 mg Lactated Ringer's (Lactated Ringer's) 1,000 mls @ 250 mls/hr IV .Q4H [facility] FLUCONAZOLE IN DEXTROSE (Fluconazole-Dext 200 Mg/100 Ml) 200 mg in 100 mls @ 100 mls/hr IVPB DAILY [facility] Metronidazole (Flagyl 500mg/100ml Ns) 100 mls @ 100 mls/hr IVPB Q12 [facility]; Protocol Last Admin: 08/14/18 13:05 Dose: 100 mls/hr Ampicillin Sodium/Sulbactam (Sodium 3 gm/ Sodium Chloride) 100 mls @ 100 mls/hr IVPB Q8 [facility] Last Admin: 08/14/18 13:08 Dose: 100 mls/hr Ceftriaxone Sodium 1 gm/ (Sodium Chloride) 100 mls @ 100 mls/hr IVPB Q12H [facility] Ondansetron HCl (Zofran Inj) 4 mg IVP Q6 PRN PRN Reason: Nausea/Vomiting Oxycodone HCl (Oxycodone Immediate Release Tab) 5 mg PO Q6 PRN PRN Reason: Pain, moderate (4-7) Last Admin: 08/14/18 02:30 Dose: 5 mg Pantoprazole Sodium (Protonix Inj) 40 mg IVP DAILY [facility] Last Admin: 08/14/18 09:04 Dose: 40 mg - Labs Labs: 08/14/18 09:40 08/14/18 09:40 PT 9.9 Seconds (9.8-13.1) 08/09/18 14:36 INR 0.9 08/09/18 14:36 APTT 38.3 Seconds (25.6-37.1) H 08/09/18 14:36 Attending/Attestation - Attestation I have personally seen and examined this patient.: Yes I have fully participated in the care of the patient.: Yes I have reviewed all pertinent clinical information, including history, physical exam and plan: Yes Notes (Text): 08/14/18 13:59 I have seen and discussed the patient with the GI fellow. In summary, pt is a 72 yo [place] M visiting his family with PMH of IBS (unspecified) and Zenkers diverticulum (s/p multiple surgical repairs) who p/w jaundice and fatigue x 4 days found to have obstructive jaundice 2/2 hilar tumor. No BMs. Not passing gas. S/p ERCP 08/12/18 with placement of plastic CBD stent extending to the L in trahepatic duct. S/p R sided PTC on 08/13/17. PE: General: jaundiced HEENT: still with crepitus b/l neck Abd: R sided biliary drain - with mostly blood, tender in RLQ Barium esophagram shows no extravasation of contrast. Plan: -advance to clear liquid for dinner -continue to trend CMP -? occlusion in biliary drain, may need cholangiogram tmrw if no bilious output -continue cipro/flagyl -f/u ductal bxs -d/w pt and pt's family at bedside 08/14/18 14:05
[2018-08-14] MEDS: metroNIDAZOLE 500mg/100ml NS 100 ML IVPB SCH ×2 (13:05→20:44)
--- NOTE | 2018-08-14 16:15 | RAD ---
Date of service: 08/12/2018 PROCEDURE: Intraoperative Fluoroscopy. HISTORY: ERCP FINDINGS: Fluoroscopic assistance was provided for ERCP. Total fluoroscopic time (continuous mode) utilized during the procedure 932.3 seconds. Total exam DLP: 190.65 (mGy). . Please refer to the operative report from ELEONORA Lemos.
[2018-08-15] MEDS: Lactated Ringer's 1,000 ML IV SCH ×7 (04:19→20:26)
[2018-08-15] MEDS: oxyCODONE 5 mg Immediate Release Tab PO PRN ×3 (04:55→20:27)
--- NOTE | 2018-08-15 10:14 | CP.PCM.PN ---
<Michael Mckenzie - Last Filed: 08/15/18 11:28> Subjective - Date & Time of Evaluation Date of Evaluation: 08/15/18 Time of Evaluation: 10:09 - Subjective Subjective: HBP Surgery Note for Dr. Booth Patient seen and examined at bedside. No acute event overnight. Patient states pain is still present but slightly better. It is hard for him to move or walk by himself. Requesting to ambulate with assistance. He is tolerating liquifds. Denies fever/chills or nausea/vomiting. Reports that he is urinating more. PTC drain in place with 120cc/24hrs of bilious output Objective - Vital Signs/Intake and Output Vital Signs (last 24 hours): Temp Pulse Resp BP Pulse Ox 98.7 F 81 18 179/98 H 97 08/15/18 08:03 08/15/18 08:03 08/15/18 08:03 08/15/18 08:03 08/15/18 08:03 Intake and Output: 08/15/18 08/15/18 06:59 18:59 Intake Total 2550 Output Total 820 Balance 1730 - Medications Medications: Current Medications Acetaminophen (Tylenol 325mg Tab) 650 mg PO Q6 PRN PRN Reason: Pain, Mild (1-3) Enoxaparin Sodium (Lovenox) 40 mg SC DAILY [facility]; Protocol Last Admin: 08/11/18 12:17 Dose: 40 mg Hydromorphone HCl (Dilaudid) 0.5 mg IVP Q2 PRN PRN Reason: Pain, moderate (4-7) Last Admin: 08/15/18 09:23 Dose: 0.5 mg Lactated Ringer's (Lactated Ringer's) 1,000 mls @ 250 mls/hr IV .Q4H [facility] Last Admin: 08/15/18 09:07 Dose: 250 mls/hr Metronidazole (Flagyl 500mg/100ml Ns) 100 mls @ 100 mls/hr IVPB Q12 [facility]; Protocol Last Admin: 08/14/18 20:44 Dose: 100 mls/hr Ampicillin Sodium/Sulbactam (Sodium 3 gm/ Sodium Chloride) 100 mls @ 100 mls/hr IVPB Q8 [facility] Last Admin: 08/15/18 09:08 Dose: 100 mls/hr Ceftriaxone Sodium 1 gm/ (Sodium Chloride) 100 mls @ 100 mls/hr IVPB Q12H [facility] Last Admin: 08/14/18 20:37 Dose: 100 mls/hr Fluconazole (Diflucan Iv 200 Mg/100 Ml Ns) 100 mls @ 100 mls/hr IVPB DAILY [facility] Ondansetron HCl (Zofran Inj) 4 mg IVP Q6 PRN PRN Reason: Nausea/Vomiting Oxycodone HCl (Oxycodone Immediate Release Tab) 5 mg PO Q6 PRN PRN Reason: Pain, moderate (4-7) Last Admin: 08/15/18 04:55 Dose: 5 mg Pantoprazole Sodium (Protonix Inj) 40 mg IVP DAILY [facility] Last Admin: 08/14/18 09:04 Dose: 40 mg - Labs Labs: 08/14/18 09:40 08/14/18 09:40 PT 9.9 Seconds (9.8-13.1) 08/09/18 14:36 INR 0.9 08/09/18 14:36 APTT 38.3 Seconds (25.6-37.1) H 08/09/18 14:36 - Constitutional Appears: No Acute Distress - Head Exam Head Exam: ATRAUMATIC, NORMOCEPHALIC - Eye Exam Eye Exam: EOMI, Scleral icterus Pupil Exam: PERRL - ENT Exam ENT Exam: Mucous Membranes Moist - Neck Exam Neck Exam: Full ROM - Respiratory Exam Respiratory Exam: NORMAL BREATHING PATTERN - Cardiovascular Exam Cardiovascular Exam: REGULAR RHYTHM - GI/Abdominal Exam GI & Abdominal Exam: Distended (mild), Soft, Tenderness. 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 Tinajero PGY2 <Nader Leon - Last Filed: 08/16/18 09:44> Objective - Vital Signs/Intake and Output Vital Signs (last 24 hours): Temp Pulse Resp BP Pulse Ox 98.1 F 105 H 18 155/96 H 96 08/15/18 12:10 08/15/18 12:10 08/15/18 12:10 08/15/18 12:10 08/15/18 12:10 Intake and Output: 08/15/18 08/15/18 06:59 18:59 Intake Total 2550 Output Total 820 150 Balance 1730 -150 - Medications Medications: Current Medications Acetaminophen (Tylenol 325mg Tab) 650 mg PO Q6 PRN PRN Reason: Pain, Mild (1-3) Enoxaparin Sodium (Lovenox) 40 mg SC DAILY [facility]; Protocol Last Admin: 08/11/18 12:17 Dose: 40 mg Hydromorphone HCl (Dilaudid) 0.5 mg IVP Q2 PRN PRN Reason: Pain, moderate (4-7) Last Admin: 08/15/18 09:23 Dose: 0.5 mg Lactated Ringer's (Lactated Ringer's) 1,000 mls @ 250 mls/hr IV .Q4H [facility] Last Admin: 08/15/18 12:01 Dose: Not Given Metronidazole (Flagyl 500mg/100ml Ns) 100 mls @ 100 mls/hr IVPB Q12 [facility]; Protoc ol Last Admin: 08/14/18 20:44 Dose: 100 mls/hr Ampicillin Sodium/Sulbactam (Sodium 3 gm/ Sodium Chloride) 100 mls @ 100 mls/hr IVPB Q8 [facility] Last Admin: 08/15/18 09:08 Dose: 100 mls/hr Ceftriaxone Sodium 1 gm/ (Sodium Chloride) 100 mls @ 100 mls/hr IVPB Q12H [facility] Last Admin: 08/14/18 20:37 Dose: 100 mls/hr Fluconazole (Diflucan Iv 200 Mg/100 Ml Ns) 100 mls @ 100 mls/hr IVPB DAILY [facility] Ondansetron HCl (Zofran Inj) 4 mg IVP Q6 PRN PRN Reason: Nausea/Vomiting Oxycodone HCl (Oxycodone Immediate Release Tab) 5 mg PO Q6 PRN PRN Reason: Pain, moderate (4-7) Last Admin: 08/15/18 04:55 Dose: 5 mg Pantoprazole Sodium (Protonix Inj) 40 mg IVP DAILY [facility] Last Admin: 08/15/18 10:40 Dose: 40 mg - Labs Labs: 08/15/18 10:30 08/15/18 10:30 PT 9.9 Seconds (9.8-13.1) 08/09/18 14:36 INR 0.9 08/09/18 14:36 APTT 38.3 Seconds (25.6-37.1) H 08/09/18 14:36 Assessment and Plan - Assessment and Plan (Free Text) Plan: All medical record entries made by the resident were at my direction. I have reviewed the chart and agree that the record accurately reflects my personal performance of the history, physical exam, medical decision making
--- NOTE | 2018-08-15 10:25 | CP.PCM.PN ---
<Michael Mckenzie - Last Filed: 08/15/18 11:37> Subjective - Date & Time of Evaluation Date of Evaluation: 08/14/18 Time of Evaluation: 08:00 - Subjective Subjective: HBP Surgery Note for Dr. Booth Patient seen and examined at bedside. Patient found to have pneumomediastinum and crepitus and pneumoperitoneum. Patinet has been hemodynamically normal and clinically stable. He is s/p ERCP and s/p PTC. Pain is still present and requiring medications every 2-3 hours. He is tolerating liquids. Denies fever/chills or nausea/vomiting. PTC drain in place with serosanguinous and bilious output Objective - Vital Signs/Intake and Output Vital Signs (last 24 hours): Temp Pulse Resp BP Pulse Ox 98.7 F 81 18 179/98 H 97 08/15/18 08:03 08/15/18 08:03 08/15/18 08:03 08/15/18 08:03 08/15/18 08:03 Intake and Output: 08/15/18 08/15/18 06:59 18:59 Intake Total 2550 Output Total 820 Balance 1730 - Medications Medications: Current Medications Acetaminophen (Tylenol 325mg Tab) 650 mg PO Q6 PRN PRN Reason: Pain, Mild (1-3) Enoxaparin Sodium (Lovenox) 40 mg SC DAILY [facility]; Protocol Last Admin: 08/11/18 12:17 Dose: 40 mg Hydromorphone HCl (Dilaudid) 0.5 mg IVP Q2 PRN PRN Reason: Pain, moderate (4-7) Last Admin: 08/15/18 09:23 Dose: 0.5 mg Lactated Ringer's (Lactated Ringer's) 1,000 mls @ 250 mls/hr IV .Q4H [facility] Last Admin: 08/15/18 09:07 Dose: 250 mls/hr Metronidazole (Flagyl 500mg/100ml Ns) 100 mls @ 100 mls/hr IVPB Q12 [facility]; Protocol Last Admin: 08/14/18 20:44 Dose: 100 mls/hr Ampicillin Sodium/Sulbactam (Sodium 3 gm/ Sodium Chloride) 100 mls @ 100 mls/hr IVPB Q8 [facility] Last Admin: 03/29/19 09:08 Dose: 100 mls/hr Ceftriaxone Sodium 1 gm/ (Sodium Chloride) 100 mls @ 100 mls/hr IVPB Q12H [facility] Last Admin: 08/14/18 20:37 Dose: 100 mls/hr Fluconazole (Diflucan Iv 200 Mg/100 Ml Ns) 100 mls @ 100 mls/hr IVPB DAILY [facility] Ondansetron HCl (Zofran Inj) 4 mg IVP Q6 PRN PRN Reason: Nausea/Vomiting Oxycodone HCl (Oxycodone Immediate Release Tab) 5 mg PO Q6 PRN PRN Reason: Pain, moderate (4-7) Last Admin: 08/15/18 04:55 Dose: 5 mg Pantoprazole Sodium (Protonix Inj) 40 mg IVP DAILY [facility] Last Admin: 08/14/18 09:04 Dose: 40 mg - Labs Labs: 08/14/18 09:40 08/14/18 09:40 PT 9.9 Seconds (9.8-13.1) 08/09/18 14:36 INR 0.9 08/09/18 14:36 APTT 38.3 Seconds (25.6-37.1) H 08/09/18 14:36 - Additional Findings Additional findings: - Constitutional Appears: No Acute Distress - Head Exam Head Exam: ATRAUMATIC, NORMOCEPHALIC - Eye Exam Eye Exam: EOMI, Scleral icterus Pupil Exam: PERRL - ENT Exam ENT Exam: Mucous Membranes Moist - Neck Exam Neck Exam: Full ROM - Respiratory Exam Respiratory Exam: NORMAL BREATHING PATTERN - Cardiovascular Exam Cardiovascular Exam: REGULAR RHYTHM - GI/Abdominal Exam GI & Abdominal Exam: Distended (mild), Soft, Tenderness. 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 Tinajero PGY2 <Nader Leon - Last Filed: 08/15/18 13:01> Objective - Vital Signs/Intake and Output Vital Signs (last 24 hours): Temp Pulse Resp BP Pulse Ox 98.1 F 105 H 18 155/96 H 96 08/15/18 12:10 08/15/18 12:10 08/15/18 12:10 08/15/18 12:10 08/15/18 12:10 Intake and Output: 08/15/18 08/15/18 06:59 18:59 Intake Total 2550 Output Total 820 150 Balance 1730 -150 - Medications Medications: Current Medications Acetaminophen (Tylenol 325mg Tab) 650 mg PO Q6 PRN PRN Reason: Pain, Mild (1-3) Enoxaparin Sodium (Lovenox) 40 mg SC DAILY [facility]; Protocol Last Admin: 08/11/18 12:17 Dose: 40 mg Hydromorphone HCl (Dilaudid) 0.5 mg IVP Q2 PRN PRN Reason: Pain, moderate (4-7) Last Admin: 08/15/18 09:23 Dose: 0.5 mg Lactated Ringer's (Lactated Ringer's) 1,000 mls @ 250 mls/hr IV .Q4H [facility] Last Admin: 08/15/18 12:01 Dose: Not Given Metronidazole (Flagyl 500mg/100ml Ns) 100 mls @ 100 mls/hr IVPB Q12 [facility]; Protocol Last Admin: 08/14/18 20:44 Dose: 100 mls/hr Ampicillin Sodium/Sulbactam (Sodium 3 gm/ Sodium Chloride) 100 mls @ 100 mls/hr IVPB Q8 [facility] Last Admin: 08/15/18 09:08 Dose: 100 mls/hr Ceftriaxone Sodium 1 gm/ (Sodium Chloride) 100 mls @ 100 mls/hr IVPB Q12H [facility] Last Admin: 08/14/18 20:37 Dose: 100 mls/hr Fluconazole (Diflucan Iv 200 Mg/100 Ml Ns) 100 mls @ 100 mls/hr IVPB DAILY [facility] Ondansetron HCl (Zofran Inj) 4 mg IVP Q6 PRN PRN Reason: Nausea/Vomiting Oxycodone HCl (Oxycodone Immediate Release Tab) 5 mg PO Q6 PRN PRN Reason: Pain, moderate (4-7) Last Admin: 08/15/18 04:55 Dose: 5 mg Pantoprazole Sodium (Protonix Inj) 40 mg IVP DAILY [facility] Last Admin: 08/15/18 10:40 Dose: 40 mg - Labs Labs: 08/15/18 10:30 08/15/18 10:30 PT 9.9 Seconds (9.8-13.1) 08/09/18 14:36 INR 0.9 08/09/18 14:36 APTT 38.3 Seconds (25.6-37.1) H 08/09/18 14:36 Assessment and Plan - Assessment and Plan (Free Text) Assessment: All medical record entries made by the resident were at my direction. I have reviewed the chart and agree that the record accurately reflects my personal performance of the history, physical exam, medical decision making
[2018-08-15 11:07] LABS: HEMOGLOBIN 10.3 g/dL (12.0-18.0); MEAN CELL VOLUME 87.4 fl (80.0-94.0); MEAN CORPUSCULAR HEMOGLOBIN 30.6 pg (27.0-31.0); RBC 3.35 Mil/uL (4.40-5.90); WHITE BLOOD COUNT 14.2 K/uL (4.8-10.8)
[2018-08-15 11:29] LABS: BLOOD UREA NITROGEN 15 mg/dl (9-20); GFR NON-AFRICAN AMERICAN > 60
[2018-08-15 11:30] LABS: ALB/GLOB RATIO 0.9 (1.0-2.1); ALBUMIN 3.4 g/dL (3.5-5.0); ALT/SGPT 318 U/L (21-72); AST/SGOT 352 U/L (17-59); CALCIUM 9.1 mg/dL (8.4-10.2)
[2018-08-15] MEDS ORDERED: Iodixanol 320 MG/ML 100 ML BOTTLE IV ONE (12:06)
[2018-08-15] MEDS: metroNIDAZOLE 500mg/100ml NS 100 ML IVPB SCH ×2 (13:28→20:30)
--- NOTE | 2018-08-15 13:52 | CP.PCM.PN ---
<Matthew Gonzalez - Last Filed: 08/15/18 14:34> Subjective - Date & Time of Evaluation Date of Evaluation: 08/15/18 Time of Evaluation: 09:00 - Subjective Subjective: PGY-4 GI Fellow Prog Note Pt lying in bed when seen this AM. State abd pain about the same. Tolerating liquids without issue. No flatus nor BM yet. Biliary drain flush yesterday/overnight and now with bilious output. 5 point ROS negative other than stated above Objective - Vital Signs/Intake and Output Vital Signs (last 24 hours): Temp Pulse Resp BP Pulse Ox 98.1 F 105 H 18 155/96 H 96 08/15/18 12:10 08/15/18 12:10 08/15/18 12:10 08/15/18 12:10 08/15/18 12:10 Intake and Output: 08/15/18 08/15/18 06:59 18:59 Intake Total 2550 Output Total 820 150 Balance 1730 -150 - Medications Medications: Current Medications Acetaminophen (Tylenol 325mg Tab) 650 mg PO Q6 PRN PRN Reason: Pain, Mild (1-3) Enoxaparin Sodium (Lovenox) 40 mg SC DAILY [facility]; Protocol Last Admin: 08/11/18 12:17 Dose: 40 mg Hydromorphone HCl (Dilaudid) 0.5 mg IVP Q2 PRN PRN Reason: Pain, moderate (4-7) Last Admin: 08/15/18 09:23 Dose: 0.5 mg Lactated Ringer's (Lactated Ringer's) 1,000 mls @ 250 mls/hr IV .Q4H [facility] Last Admin: 08/15/18 12:01 Dose: Not Given Metronidazole (Flagyl 500mg/100ml Ns) 100 mls @ 100 mls/hr IVPB Q12 [facility]; Protocol Last Admin: 08/15/18 13:28 Dose: Not Given Ampicillin Sodium/Sulbactam (Sodium 3 gm/ Sodium Chloride) 100 mls @ 100 mls/hr IVPB Q8 [facility] Last Admin: 08/15/18 09:08 Dose: 100 mls/hr Ceftriaxone Sodium 1 gm/ (Sodium Chloride) 100 mls @ 100 mls/hr IVPB Q12H [facility] Last Admin: 08/14/18 20:37 Dose: 100 mls/hr Fluconazole (Diflucan Iv 200 Mg/100 Ml Ns) 100 mls @ 100 mls/hr IVPB DAILY [facility] Ondansetron HCl (Zofran Inj) 4 mg IVP Q6 PRN PRN Reason: Nausea/Vomiting Oxycodone HCl (Oxycodone Immediate Release Tab) 5 mg PO Q6 PRN PRN Reason: Pain, moderate (4-7) Last Admin: 08/15/18 04:55 Dose: 5 mg Pantoprazole Sodium (Protonix Inj) 40 mg IVP DAILY [facility] Last Admin: 08/15/18 10:40 Dose: 40 mg - Labs Labs: 08/15/18 10:30 08/15/18 10:30 PT 9.9 Seconds (9.8-13.1) 08/09/18 14:36 INR 0.9 08/09/18 14:36 APTT 38.3 Seconds (25.6-37.1) H 08/09/18 14:36 - Constitutional Appears: Well, No Acute Distress, Other (Jaundiced) - Head Exam Head Exam: ATRAUMATIC, NORMAL INSPECTION - Eye Exam Eye Exam: EOMI, Scleral icterus - ENT Exam ENT Exam: Mucous Membranes Moist Additional comments: palpable crepitus in neck - Respiratory Exam Respiratory Exam: NORMAL BREATHING PATTERN. absent: Accessory Muscle Use - GI/Abdominal Exam GI & Abdominal Exam: Distended (mildly), Guarding (vol in RLQ), Soft, Tenderness (diffusely but mostly in RLQ), Hypoactive Bowel Sounds. absent: Bruit, Firm, Rigid, Mass Assessment and Plan - Assessment and Plan (Free Text) Assessment: 72 yo M presenting with jaundice, fatigue, diarrhea found to have elevated liver tests and possible GB mass. 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 CA 19-9 elevated at 62.9, CEA and AFP wnl. # Abnormal liver tests: Cholestatic pattern predominant mostly # IBS: Unspecified, more dyspeptic symptoms. Not on meds as outpatient. # H/o Zenkers: S/p multiple repairs. "small piece remaining" per patient. # Pneumomediastinum, Subcutaneous air: ?microperf/leak post ERCP in setting of Zenkers? Esophagram without signs of perforation. Plan: - S/p ERCP with cholangioscopy with biopsy of biliary hilar stricture/mass biopsy --- Path without signs of malignancy, but suspicion remains, suspect inadequate biopsies --- Biliary stent placed in L hepatic duct --- Unable to place R duct stent endoscopically - IR placed R duct PTC drain 08/13/18 --- Drain clogged? Though with bilious output now, bilirubin lvl increased -> Cholangiography today - Cont Abx - Consider adv to Full Liq diet - Monitor labs Case discussed with Dr. Mccann please see attestation for further recs/changes. <Alisa Mccann - Last Filed: 08/15/18 21:46> Objective - Vital Signs/Intake and Output Vital Signs (last 24 hours): Temp Pulse Resp BP Pulse Ox 98.8 F 88 18 183/99 H 97 08/15/18 20:07 08/15/18 20:07 08/15/18 20:07 08/15/18 20:07 08/15/18 20:07 Intake and Output: 08/15/18 08/16/18 18:59 06:59 Intake Total 3530 Output Total 1000 Balance 2530 - Medications Medications: Current Medications Acetaminophen (Tylenol 325mg Tab) 650 mg PO Q6 PRN PRN Reason: Pain, Mild (1-3) Docusate Sodium (Colace) 100 mg PO DAILY [facility] Last Admin: 08/15/18 18:37 Dose: 100 mg Enoxaparin Sodium (Lovenox) 40 mg SC DAILY [facility]; Protocol Last Admin: 08/11/18 12:17 Dose: 40 mg Hydromorphone HCl (Dilaudid) 0.5 mg IVP Q2 PRN PRN Reason: Pain, moderate (4-7) Last Admin: 08/15/18 15:59 Dose: 0.5 mg Lactated Ringer's (Lactated Ringer's) 1,000 mls @ 250 mls/hr IV .Q4H [facility] Last Admin: 08/15/18 20:26 Dose: 250 mls/hr Metronidazole (Flagyl 500mg/100ml Ns) 100 mls @ 100 mls/hr IVPB Q12 [facility]; Protocol Last Admin: 08/15/18 20:30 Dose: 100 mls/hr Ampicillin Sodium/Sulbactam (Sodium 3 gm/ Sodium Chloride) 100 mls @ 100 mls/hr IVPB Q8 [facility] Last Admin: 08/15/18 16:10 Dose: 100 mls/hr Ceftriaxone Sodium 1 gm/ (Sodium Chloride) 100 mls @ 100 mls/hr IVPB Q12H [facility] Last Admin: 08/15/18 20:26 Dose: 100 mls/hr Fluconazole (Diflucan Iv 200 Mg/100 Ml Ns) 100 mls @ 100 mls/hr IVPB DAILY [facility] Last Admin: 08/15/18 13:58 Dose: 100 mls/hr Ondansetron HCl (Zofran Inj) 4 mg IVP Q6 PRN PRN Reason: Nausea/Vomiting Oxycodone HCl (Oxycodone Immediate Release Tab) 5 mg PO Q6 PRN PRN Reason: Pain, moderate (4-7) Last Admin: 08/15/18 20:27 Dose: 5 mg Pantoprazole Sodium (Protonix Inj) 40 mg IVP DAILY [facility] Last Admin: 08/15/18 10:40 Dose: 40 mg Polyethylene Glycol (Miralax) 17 gm PO DAILY [facility] Ursodiol (Actigall) 300 mg PO BID [facility] Last Admin: 08/15/18 18:37 Dose: 300 mg - Labs Labs: 08/15/18 10:30 08/15/18 10:30 PT 9.9 Seconds (9.8-13.1) 08/09/18 14:36 INR 0.9 08/09/18 14:36 APTT 38.3 Seconds (25.6-37.1) H 08/09/18 14:36 Attending/Attestation - Attestation I have personally seen and examined this patient.: Yes I have fully participated in the care of the patient.: Yes I have reviewed all pertinent clinical information, including history, physical exam and plan: Yes Notes (Text): 08/15/18 21:41 I have seen and discussed the patient with the GI fellow. In summary, pt is a 72 yo [place] M visiting his family with PMH of IBS (unspecified) and Zenkers diverticulum (s/p multiple surgical repairs) who p/w jaundice and fatigue x 4 days found to have obstructive jaundice 2/2 hilar tumor. No BMs. Not passing gas. S/p ERCP 08/12/18 with placement of plastic CBD stent extending to the L intrahepatic duct. S/p R sided PTC on 3/27/18. PE: General: jaundiced HEENT: still with crepitus b/l neck but decreased compared to yesterdaya Abd: soft, slightly more tender today, R sided biliary drain - today with all bilious fluid Barium esophagram shows no extravasation of contrast. Plan: -advance to full liquids -add ursodiol 300 mg po bid -add colace/miralax for BMs -continue to trend CMP -biliary drain did not start draining until this am --> hopefully, tbili will start trending down tmrw -continue abx -path results reviewed with pathology --> crush artifact, no obvious malignancy -d/w pt and pt's family at bedside 08/15/18 21:46
[2018-08-15] MEDS: Fluconazole IV 200mg/100 ml NS 100 ML IVPB SCH (13:58)
[2018-08-16] MEDS ORDERED: Labetalol 5mg/ml (4ml) IVP ONE (02:38)
[2018-08-16] MEDS: Lactated Ringer's 1,000 ML IV SCH ×2 (03:31→03:54)
[2018-08-16 06:19] LABS: HEMOGLOBIN 10.6 g/dL (12.0-18.0); MEAN CELL VOLUME 87.7 fl (80.0-94.0); MEAN CORPUSCULAR HEMOGLOBIN 30.9 pg (27.0-31.0); MEAN CORPUSCULAR HGB CONC 35.2 g/dL (33.0-37.0); RBC 3.42 Mil/uL (4.40-5.90); RED CELL DISTRIBUTION WIDTH 18.7 % (11.5-14.5); WHITE BLOOD COUNT 13.8 K/uL (4.8-10.8)
[2018-08-16 06:43] LABS: ALB/GLOB RATIO 0.9 (1.0-2.1); ALBUMIN 3.3 g/dL (3.5-5.0); ALT/SGPT 221 U/L (21-72); AST/SGOT 126 U/L (17-59); BLOOD UREA NITROGEN 13 mg/dl (9-20); CALCIUM 9.3 mg/dL (8.4-10.2); GFR NON-AFRICAN AMERICAN > 60
[2018-08-16] MEDS: Fluconazole IV 200mg/100 ml NS 100 ML IVPB SCH (09:29)
[2018-08-16] MEDS: POLYETHYLENE GLYCOL 3350 17 GM/Dose PACKET PO SCH (09:37)
[2018-08-16] MEDS: metroNIDAZOLE 500mg/100ml NS 100 ML IVPB SCH (09:37)
[2018-08-16] MEDS: Potassium Chloride 20 mEq 100 ML IVPB SCH ×3 (10:46→14:44)
--- NOTE | 2018-08-16 15:05 | CP.PCM.PN ---
<Leighton Terry - Last Filed: 08/16/18 15:02> Subjective - Date & Time of Evaluation Date of Evaluation: 08/16/18 Time of Evaluation: 15:02 - Subjective Subjective: HBP Surgery Note for Dr. Booth This 72M was seen and examined this AM at bedside. No acute event overnight. Pt tolerating diet passing gas and moving bowels, reports improvement in abdominal pain. Denies fever/chills or nausea/vomiting. Reports that he is urinating more. PTC drain in place with 770cc/24hrs of bilious output Objective - Vital Signs/Intake and Output Vital Signs (last 24 hours): Temp Pulse Resp BP Pulse Ox 97.9 F 71 20 168/90 H 92 L 08/16/18 12:24 08/16/18 12:24 08/16/18 12:24 08/16/18 12:24 08/16/18 12:24 Intake and Output: 08/16/18 08/16/18 06:59 18:59 Intake Total 2720 Output Total 1220 Balance 1500 - Medications Medications: Current Medications Acetaminophen (Tylenol 325mg Tab) 650 mg PO Q6 PRN PRN Reason: Pain, Mild (1-3) Docusate Sodium (Colace) 100 mg PO DAILY [facility] Last Admin: 08/16/18 09:30 Dose: 100 mg Enoxaparin Sodium (Lovenox) 40 mg SC DAILY [facility]; Protocol Last Admin: 08/11/18 12:17 Dose: 40 mg Hydromorphone HCl (Dilaudid) 0.5 mg IVP Q2 PRN PRN Reason: Pain, moderate (4-7) Last Admin: 08/16/18 09:27 Dose: 0.5 mg Ampicillin Sodium/Sulbactam (Sodium 3 gm/ Sodium Chloride) 100 mls @ 100 mls/hr IVPB Q8 [facility] Last Admin: 08/16/18 09:31 Dose: 100 mls/hr Potassium Chloride (Potassium Chloride 20 Meq/100 Ml) 100 mls @ 50 mls/hr IVPB Q2 [facility] Stop: 08/16/18 15:59 Last Admin: 08/16/18 14:44 Dose: 50 mls/hr Ondansetron HCl (Zofran Inj) 4 mg IVP Q6 PRN PRN Reason: Nausea/Vomiting Pantoprazole Sodium (Protonix Inj) 40 mg IVP DAILY [facility] Last Admin: 08/16/18 09:36 Dose: 40 mg Polyethylene Glycol (Miralax) 17 gm PO DAILY [facility] Last Admin: 08/16/18 09:37 Dose: 17 gm Ursodiol (Actigall) 300 mg PO BID [facility] Last Admin: 08/16/18 10:46 Dose: 300 mg - Labs Labs: 08/16/18 05:41 08/16/18 05:41 PT 9.9 Seconds (9.8-13.1) 08/09/18 14:36 INR 0.9 08/09/18 14:36 APTT 38.3 Seconds (25.6-37.1) H 08/09/18 14:36 - Constitutional Appears: No Acute Distress - Head Exam Head Exam: ATRAUMATIC, NORMOCEPHALIC - Eye Exam Eye Exam: EOMI, Scleral icterus Pupil Exam: PERRL - ENT Exam ENT Exam: Mucous Membranes Moist - Neck Exam Neck Exam: Full ROM - Respiratory Exam Respiratory Exam: NORMAL BREATHING PATTERN - Cardiovascular Exam Cardiovascular Exam: REGULAR RHYTHM - GI/Abdominal Exam GI & Abdominal Exam: Distended (mild), Soft, Tenderness. 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 Head PGY3 <Nader Leon - Last Filed: 08/17/18 14:19> Subjective - Subjective Subjective: All medical record entries made by the resident were at my direction and pers onally directed by me. I have reviewed the chart and agree that the record accurately reflects my personal performance of the history, physical exam, medical decision making, Objective - Vital Signs/Intake and Output Vital Signs (last 24 hours): Temp Pulse Resp BP Pulse Ox 98.5 F 76 20 154/88 H 94 L 08/17/18 12:15 08/17/18 12:15 08/17/18 12:15 08/17/18 12:15 08/17/18 12:15 Intake and Output: 08/17/18 08/17/18 06:59 18:59 Intake Total 400 Output Total 700 Balance -300 - Medications Medications: Current Medications Acetaminophen (Tylenol 325mg Tab) 650 mg PO Q6 PRN PRN Reason: Pain, Mild (1-3) Last Admin: 08/17/18 11:18 Dose: 650 mg Docusate Sodium (Colace) 100 mg PO DAILY [facility] Last Admin: 08/17/18 09:12 Dose: 100 mg Enoxaparin Sodium (Lovenox) 40 mg SC DAILY [facility]; Protocol Last Admin: 08/11/18 12:17 Dose: 40 mg Ampicillin Sodium/Sulbactam (Sodium 3 gm/ Sodium Chloride) 100 mls @ 100 mls/hr IVPB Q8 [facility] Last Admin: 08/17/18 09:21 Dose: 100 mls/hr Ondansetron HCl (Zofran Inj) 4 mg IVP Q6 PRN PRN Reason: Nausea/Vomiting Oxycodone/Acetaminophen (Percocet 5/325 Mg Tab) 1 tab PO Q6 PRN PRN Reason: Pain, moderate (4-7) Stop: 08/20/18 11:02 Pantoprazole Sodium (Protonix Inj) 40 mg IVP DAILY [facility] Last Admin: 08/17/18 09:12 Dose: 40 mg Polyethylene Glycol (Miralax) 17 gm PO DAILY [facility] Last Admin: 08/17/18 09:12 Dose: 17 gm Ursodiol (Actigall) 300 mg PO BID [facility] Last Admin: 08/17/18 09:12 Dose: 300 mg - Labs Labs: 08/17/18 05:29 08/17/18 05:29 PT 9.9 Seconds (9.8-13.1) 08/09/18 14:36 INR 0.9 08/09/18 14:36 APTT 38.3 Seconds (25.6-37.1) H 08/09/18 14:36 Assessment and Plan - Assessment and Plan (Free Text) Assessment: All medical record entries made by the resident were at my direction and personally directed by me. I have reviewed the chart and agree that the record accurately reflects my personal performance of the history, physical exam, medical decision making,
--- NOTE | 2018-08-16 21:34 | CP.PCM.PN ---
Subjective - Date & Time of Evaluation Date of Evaluation: 08/16/18 Time of Evaluation: 11:30 - Subjective Subjective: Pt had a small BM overnight. States his abdomen feels less distended, but still requiring some Dilaudid. Tolerating full liquids. Drain output 700 of bilious output. Slightly downtrending Tbili. Has been getting out of bed into the chair, walking around the hallway. Objective - Vital Signs/Intake and Output Vital Signs (last 24 hours): Temp Pulse Resp BP Pulse Ox 98.2 F 78 16 167/76 H 98 08/16/18 19:37 08/16/18 19:37 08/16/18 19:37 08/16/18 19:37 08/16/18 19:37 Intake and Output: 08/16/18 08/17/18 18:59 06:59 Intake Total 1150 Output Total 1400 Balance -250 - Medications Medications: Current Medications Acetaminophen (Tylenol 325mg Tab) 650 mg PO Q6 PRN PRN Reason: Pain, Mild (1-3) Docusate Sodium (Colace) 100 mg PO DAILY [facility] Last Admin: 08/16/18 09:30 Dose: 100 mg Enoxaparin Sodium (Lovenox) 40 mg SC DAILY [facility]; Protocol Last Admin: 08/11/18 12:17 Dose: 40 mg Hydromorphone HCl (Dilaudid) 0.5 mg IVP Q2 PRN PRN Reason: Pain, moderate (4-7) Last Admin: 08/16/18 18:40 Dose: 0.5 mg Ampicillin Sodium/Sulbactam (Sodium 3 gm/ Sodium Chloride) 100 mls @ 100 mls/hr IVPB Q8 [facility] Last Admin: 08/16/18 16:55 Dose: 100 mls/hr Ondansetron HCl (Zofran Inj) 4 mg IVP Q6 PRN PRN Reason: Nausea/Vomiting Pantoprazole Sodium (Protonix Inj) 40 mg IVP DAILY [facility] Last Admin: 08/16/18 09:36 Dose: 40 mg Polyethylene Glycol (Miralax) 17 gm PO DAILY [facility] Last Admin: 08/16/18 09:37 Dose: 17 gm Ursodiol (Actigall) 300 mg PO BID [facility] Last Admin: 08/16/18 16:55 Dose: 300 mg - Labs Labs: 08/16/18 05:41 08/16/18 05:41 PT 9.9 Seconds (9.8-13.1) 08/09/18 14:36 INR 0.9 08/09/18 14:36 APTT 38.3 Seconds (25.6-37.1) H 08/09/18 14:36 - Constitutional Appears: No Acute Distress - Head Exam Head Exam: ATRAUMATIC, NORMAL INSPECTION, NORMOCEPHALIC - Eye Exam Eye Exam: EOMI, Scleral icterus - ENT Exam ENT Exam: Mucous Membranes Moist - Neck Exam Neck Exam: Full ROM - Respiratory Exam Respiratory Exam: Clear to Ausculation Bilateral - Cardiovascular Exam Cardiovascular Exam: RRR, +S1, +S2 - GI/Abdominal Exam GI & Abdominal Exam: Soft, Normal Bowel Sounds Additional comments: R sided biliary drain with bilious fluid - Extremities Exam Extremities Exam: Full ROM, Normal Inspection - Neurological Exam Neurological Exam: Alert, Awake, CN II-XII Intact, Oriented x3 - Psychiatric Exam Psychiatric exam: Normal Mood - Skin Additional comments: jaundice Assessment and Plan (1) Hilar mass Status: Acute - Assessment and Plan (Free Text) Assessment: 72 yo Greek man who p/w obstructive jaundice found to have hilar mass s/p ERCP w/ cholangioscopy, sphincterotomy and placement of L sided CBD stent (08/12/18) as well as R sided PTC done by IR (08/13/18). -tbili trending down -would d/c flagyl, fluconazole, ceftriaxone --> continue unasyn -advance to low fat diet -pathology reviewed and not clearly malignant, but suspicion for cholangiocarcinoma still remains and this was conveyed to the pt and pt's family -encourage ambulation -would try to minimize pain meds -d/w pt and nursing staff
[2018-08-17 06:40] LABS: HEMOGLOBIN 10.3 g/dL (12.0-18.0); MEAN CELL VOLUME 88.6 fl (80.0-94.0); MEAN CORPUSCULAR HEMOGLOBIN 30.1 pg (27.0-31.0); RBC 3.42 Mil/uL (4.40-5.90); RED CELL DISTRIBUTION WIDTH 18.7 % (11.5-14.5); WHITE BLOOD COUNT 11.2 K/uL (4.8-10.8)
[2018-08-17 07:02] LABS: ALB/GLOB RATIO 0.9 (1.0-2.1); ALBUMIN 3.1 g/dL (3.5-5.0); ALT/SGPT 147 U/L (21-72); AST/SGOT 60 U/L (17-59); BLOOD UREA NITROGEN 17 mg/dl (9-20); CALCIUM 8.6 mg/dL (8.4-10.2); GFR NON-AFRICAN AMERICAN > 60
[2018-08-17] MEDS: POLYETHYLENE GLYCOL 3350 17 GM/Dose PACKET PO SCH (09:12)
--- NOTE | 2018-08-17 09:52 | CP.PCM.PN ---
<Leighton Terry - Last Filed: 08/17/18 09:50> Subjective - Date & Time of Evaluation Date of Evaluation: 08/17/18 Time of Evaluation: 07:00 - Subjective Subjective: HBP Surgery Note for Dr. Leon This 72M was seen and examined this AM at bedside. No acute event overnight. Pt tolerating diet passing gas and moving bowels, reports improvement in abdominal pain. Denies fever/chills or nausea/vomiting. PTC drain in place with 500cc/24hrs of bilious output Objective - Vital Signs/Intake and Output Vital Signs (last 24 hours): Temp Pulse Resp BP Pulse Ox 98.2 F 88 20 161/87 H 92 L 08/17/18 08:00 08/17/18 08:00 08/17/18 08:00 08/17/18 08:00 08/17/18 08:00 Intake and Output: 08/17/18 08/17/18 06:59 18:59 Intake Total 400 Output Total 700 Balance -300 - Medications Medications: Current Medications Acetaminophen (Tylenol 325mg Tab) 650 mg PO Q6 PRN PRN Reason: Pain, Mild (1-3) Docusate Sodium (Colace) 100 mg PO DAILY [facility] Last Admin: 08/17/18 09:12 Dose: 100 mg Enoxaparin Sodium (Lovenox) 40 mg SC DAILY [facility]; Protocol Last Admin: 08/11/18 12:17 Dose: 40 mg Ampicillin Sodium/Sulbactam (Sodium 3 gm/ Sodium Chloride) 100 mls @ 100 mls/hr IVPB Q8 [facility] Last Admin: 08/17/18 09:21 Dose: 100 mls/hr Ondansetron HCl (Zofran Inj) 4 mg IVP Q6 PRN PRN Reason: Nausea/Vomiting Pantoprazole Sodium (Protonix Inj) 40 mg IVP DAILY [facility] Last Admin: 08/17/18 09:12 Dose: 40 mg Polyethylene Glycol (Miralax) 17 gm PO DAILY [facility] Last Admin: 08/17/18 09:12 Dose: 17 gm Ursodiol (Actigall) 300 mg PO BID [facility] Last Admin: 08/17/18 09:12 Dose: 300 mg - Labs Labs: 08/17/18 05:29 08/17/18 05:29 PT 9.9 Seconds (9.8-13.1) 08/09/18 14:36 INR 0.9 08/09/18 14:36 APTT 38.3 Seconds (25.6-37.1) H 08/09/18 14:36 - Constitutional Appears: No Acute Distress - Head Exam Head Exam: ATRAUMATIC, NORMOCEPHALIC - Eye Exam Eye Exam: EOMI, Scleral icterus Pupil Exam: PERRL - ENT Exam ENT Exam: Mucous Membranes Moist - Neck Exam Neck Exam: Full ROM - Respiratory Exam Respiratory Exam: NORMAL BREATHING PATTERN - Cardiovascular Exam Cardiovascular Exam: REGULAR RHYTHM - GI/Abdominal Exam GI & Abdominal Exam: Distended (mild), Soft, Tenderness. 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 Head PGY3 <Nader Leon - Last Filed: 08/17/18 14:15> Objective - Vital Signs/Intake and Output Vital Signs (last 24 hours): Temp Pulse Resp BP Pulse Ox 98.5 F 76 20 154/88 H 94 L 08/17/18 12:15 08/17/18 12:15 08/17/18 12:15 08/17/18 12:15 08/17/18 12:15 Intake and Output: 08/17/18 08/17/18 06:59 18:59 Intake Total 400 Output Total 700 Balance -300 - Medications Medications: Current Medications Acetaminophen (Tylenol 325mg Tab) 650 mg PO Q6 PRN PRN Reason: Pain, Mild (1-3) Last Admin: 08/17/18 11:18 Dose: 650 mg Docusate Sodium (Colace) 100 mg PO DAILY [facility] Last Admin: 08/17/18 09:12 Dose: 100 mg Enoxaparin Sodium (Lovenox) 40 mg SC DAILY [facility]; Protocol Last Admin: 08/11/18 12:17 Dose: 40 mg Ampicillin Sodium/Sulbactam (Sodium 3 gm/ Sodium Chloride) 100 mls @ 100 mls/hr IVPB Q8 [facility] Last Admin: 08/17/18 09:21 Dose: 100 mls/hr Ondansetron HCl (Zofran Inj) 4 mg IVP Q6 PRN PRN Reason: Nausea/Vomiting Oxycodone/Acetaminophen (Percocet 5/325 Mg Tab) 1 tab PO Q6 PRN PRN Reason: Pain, moderate (4-7) Stop: 08/20/18 11:02 Pantoprazole Sodium (Protonix Inj) 40 mg IVP DAILY [facility] Last Admin: 08/17/18 09:12 Dose: 40 mg Polyethylene Glycol (Miralax) 17 gm PO DAILY [facility] Last Admin: 08/17/18 09:12 Dose: 17 gm Ursodiol (Actigall) 300 mg PO BID [facility] Last Admin: 08/17/18 09:12 Dose: 300 mg - Labs Labs: 08/17/18 05:29 08/17/18 05:29 PT 9.9 Seconds (9.8-13.1) 08/09/18 14:36 INR 0.9 08/09/18 14:36 APTT 38.3 Seconds (25.6-37.1) H 08/09/18 14:36 Assessment and Plan - Assessment and Plan (Free Text) Assessment: All medical record entries made by the resident were at my direction and personally directed by me. I have reviewed the chart and agree that the record accurately reflects my personal performance of the history, physical exam, medical decision making,
--- NOTE | 2018-08-17 14:14 | CP.PCM.PN ---
Subjective - Date & Time of Evaluation Date of Evaluation: 08/17/18 Time of Evaluation: 11:17 - Subjective Subjective: Abdominal pain still persistent in RLQ.Passing gas and having BMs, but he states it's been mostly loose. 500 cc bilious fluid output. Objective - Vital Signs/Intake and Output Vital Signs (last 24 hours): Temp Pulse Resp BP Pulse Ox 98.2 F 88 20 161/87 H 92 L 08/17/18 08:00 08/17/18 08:00 08/17/18 08:00 08/17/18 08:00 08/17/18 08:00 Intake and Output: 08/17/18 08/17/18 06:59 18:59 Intake Total 400 Output Total 700 Balance -300 - Medications Medications: Current Medications Acetaminophen (Tylenol 325mg Tab) 650 mg PO Q6 PRN PRN Reason: Pain, Mild (1-3) Docusate Sodium (Colace) 100 mg PO DAILY [facility] Last Admin: 08/17/18 09:12 Dose: 100 mg Enoxaparin Sodium (Lovenox) 40 mg SC DAILY [facility]; Protocol Last Admin: 08/11/18 12:17 Dose: 40 mg Ampicillin Sodium/Sulbactam (Sodium 3 gm/ Sodium Chloride) 100 mls @ 100 mls/hr IVPB Q8 [facility] Last Admin: 08/17/18 09:21 Dose: 100 mls/hr Ondansetron HCl (Zofran Inj) 4 mg IVP Q6 PRN PRN Reason: Nausea/Vomiting Pantoprazole Sodium (Protonix Inj) 40 mg IVP DAILY [facility] Last Admin: 08/17/18 09:12 Dose: 40 mg Polyethylene Glycol (Miralax) 17 gm PO DAILY [facility] Last Admin: 08/17/18 09:12 Dose: 17 gm Ursodiol (Actigall) 300 mg PO BID [facility] Last Admin: 08/17/18 09:12 Dose: 300 mg - Labs Labs: 08/17/18 05:29 08/17/18 05:29 PT 9.9 Seconds (9.8-13.1) 08/09/18 14:36 INR 0.9 08/09/18 14:36 APTT 38.3 Seconds (25.6-37.1) H 08/09/18 14:36 - Constitutional Appears: Well, No Acute Distress - Head Exam Head Exam: ATRAUMATIC, NORMAL INSPECTION - Eye Exam Eye Exam: Normal appearance, Scleral icterus Pupil Exam: NORMAL ACCOMODATION, PERRL - ENT Exam ENT Exam: Mucous Membranes Moist - Neck Exam Neck Exam: Normal Inspection - Respiratory Exam Respiratory Exam: Clear to Ausculation Bilateral - Cardiovascular Exam Cardiovascular Exam: REGULAR RHYTHM, +S1, +S2 - GI/Abdominal Exam GI & Abdominal Exam: Soft, Normal Bowel Sounds - Extremities Exam Extremities Exam: Full ROM, Normal Inspection - Neurological Exam Neurological Exam: Alert, Awake, CN II-XII Intact, Oriented x3 - Psychiatric Exam Psychiatric exam: Normal Affect, Normal Mood - Skin Skin Exam: Dry, Warm Additional comments: jaundiced Assessment and Plan (1) Hilar mass Status: Acute
[2018-08-17] MEDS: Oxycodone/Acetaminophen 5/325 mg Tab PO PRN (16:49)
[2018-08-18] MEDS: Oxycodone/Acetaminophen 5/325 mg Tab PO PRN ×2 (00:52→06:33)
[2018-08-18 05:51] LABS: HEMOGLOBIN 10.8 g/dL (12.0-18.0); MEAN CELL VOLUME 87.4 fl (80.0-94.0); MEAN CORPUSCULAR HEMOGLOBIN 30.2 pg (27.0-31.0); MEAN CORPUSCULAR HGB CONC 34.6 g/dL (33.0-37.0); RBC 3.57 Mil/uL (4.40-5.90); RED CELL DISTRIBUTION WIDTH 18.6 % (11.5-14.5); WHITE BLOOD COUNT 9.9 K/uL (4.8-10.8)
[2018-08-18 06:15] LABS: ALB/GLOB RATIO 0.8 (1.0-2.1); ALBUMIN 3.1 g/dL (3.5-5.0); ALT/SGPT 114 U/L (21-72); AST/SGOT 41 U/L (17-59); BLOOD UREA NITROGEN 17 mg/dl (9-20); CALCIUM 8.4 mg/dL (8.4-10.2); GFR NON-AFRICAN AMERICAN > 60
--- NOTE | 2018-08-18 08:12 | CP.PCM.PN ---
<Ophelia Shoemaker - Last Filed: 08/18/18 13:00> Subjective - Date & Time of Evaluation Date of Evaluation: 08/18/18 Time of Evaluation: 08:12 - Subjective Subjective: General surgery note: Dr. Leon 72 year old male patient seen and examined at bedside. Patient reporting mild abdominal discomfort at this time. Denies nausea, vomiting, fever. Objective - Vital Signs/Intake and Output Vital Signs (last 24 hours): Temp Pulse Resp BP Pulse Ox 98.7 F 69 18 165/91 H 96 08/18/18 00:19 08/18/18 00:19 08/18/18 00:19 08/18/18 00:19 08/18/18 00:19 Intake and Output: 08/18/18 08/18/18 06:59 18:59 Intake Total 300 Output Total 290 Balance 10 - Medications Medications: Current Medications Acetaminophen (Tylenol 325mg Tab) 650 mg PO Q6 PRN PRN Reason: Pain, Mild (1-3) Last Admin: 08/17/18 11:18 Dose: 650 mg Docusate Sodium (Colace) 100 mg PO DAILY [facility] Last Admin: 08/17/18 09:12 Dose: 100 mg Enoxaparin Sodium (Lovenox) 40 mg SC DAILY [facility]; Protocol Last Admin: 08/11/18 12:17 Dose: 40 mg Ampicillin Sodium/Sulbactam (Sodium 3 gm/ Sodium Chloride) 100 mls @ 100 mls/hr IVPB Q8 [facility] Last Admin: 08/18/18 00:54 Dose: 100 mls/hr Ondansetron HCl (Zofran Inj) 4 mg IVP Q6 PRN PRN Reason: Nausea/Vomiting Oxycodone/Acetaminophen (Percocet 5/325 Mg Tab) 1 tab PO Q6 PRN PRN Reason: Pain, moderate (4-7) Stop: 08/20/18 11:02 Last Admin: 08/18/18 06:33 Dose: 1 tab Pantoprazole Sodium (Protonix Inj) 40 mg IVP DAILY [facility] Last Admin: 08/17/18 09:12 Dose: 40 mg Polyethylene Glycol (Miralax) 17 gm PO DAILY [facility] Last Admin: 08/17/18 09:12 Dose: 17 gm Ursodiol (Actigall) 300 mg PO BID [facility] Last Admin: 08/17/18 16:40 Dose: 300 mg - Labs Labs: 08/18/18 04:50 08/18/18 04:50 PT 9.9 Seconds (9.8-13.1) 08/09/18 14:36 INR 0.9 08/09/18 14:36 APTT 38.3 Seconds (25.6-37.1) H 08/09/18 14:36 - Constitutional Appears: No Acute Distress - Head Exam Head Exam: ATRAUMATIC, NORMOCEPHALIC - Eye Exam Eye Exam: Scleral icterus - Respiratory Exam Respiratory Exam: Clear to Ausculation Bilateral - Cardiovascular Exam Cardiovascular Exam: REGULAR RHYTHM - GI/Abdominal Exam GI & Abdominal Exam: Soft - Neurological Exam Neurological Exam: Alert, Awake, Oriented x3 - Psychiatric Exam Psychiatric exam: Normal Affect, Normal Mood - Skin Additional comments: Jaundice Assessment and Plan - Assessment and Plan (Free Text) Assessment: 72 year old male patient with intaheptal ductal mass, s/p PTC, s/p ERCP with L sided CBD stent Plan: - Tbili trending down, 14.9 - Unasyn - Pain management PRN - C/w ambulation - Monitor LFTs - Monitor PTC output - F/U Echo report - Low fat diet - Discussed with Dr. Booth <Nader Leon - Last Filed: 08/19/18 11:07> Objective - Vital Signs/Intake and Output Vital Signs (last 24 hours): Temp Pulse Resp BP Pulse Ox 98.3 F 63 20 158/68 H 93 L 08/19/18 08:00 08/19/18 08:00 08/19/18 08:00 08/19/18 08:00 08/19/18 08:00 Intake and Output: 08/19/18 08/19/18 06:59 18:59 Intake Total 400 Output Total 150 Balance 250 - Medications Medications: Current Medications Docusate Sodium (Colace) 100 mg PO DAILY [facility] Last Admin: 08/19/18 09:02 Dose: 100 mg Enoxaparin Sodium (Lovenox) 40 mg SC DAILY [facility]; Protocol Last Admin: 08/19/18 10:56 Dose: 40 mg Ampicillin Sodium/Sulbactam (Sodium 3 gm/ Sodium Chloride) 100 mls @ 100 mls/hr IVPB Q8 [facility] Last Admin: 08/19/18 09:16 Dose: 100 mls/hr Ibuprofen (Motrin Tab) 800 mg PO Q8 PRN PRN Reason: Pain, moderate (4-7) Last Admin: 08/19/18 09:34 Dose: 800 mg Ondansetron HCl (Zofran Inj) 4 mg IVP Q6 PRN PRN Reason: Nausea/Vomiting Last Admin: 08/18/18 17:41 Dose: 4 mg Oxycodone HCl (Oxycodone Immediate Release Tab) 5 mg PO Q6 PRN PRN Reason: Pain, severe (8-10) Pantoprazole Sodium (Protonix Inj) 40 mg IVP DAILY [facility] Last Admin: 08/19/18 09:11 Dose: 40 mg Polyethylene Glycol (Miralax) 17 gm PO DAILY [facility] Last Admin: 08/19/18 09:04 Dose: 17 gm Ursodiol (Actigall) 300 mg PO BID [facility] Last Admin: 08/19/18 09:02 Dose: 300 mg - Labs Labs: 08/19/18 05:21 08/19/18 05:21 PT 9.9 Seconds (9.8-13.1) 08/09/18 14:36 INR 0.9 08/09/18 14:36 APTT 38.3 Seconds (25.6-37.1) H 08/09/18 14:36 Assessment and Plan - Assessment and Plan (Free Text) Plan: All medical record entries made by the resident were at my direction. I have rev iewed the chart and agree that the record accurately reflects my personal performance of the history, physical exam, and medical decision making for this patient.
[2018-08-18] MEDS: POLYETHYLENE GLYCOL 3350 17 GM/Dose PACKET PO SCH (10:27)
--- NOTE | 2018-08-18 11:43 | VASCULAR ---
Date of service: 08/13/2018 PROCEDURE: Fluoroscopy up to 1 hr. HISTORY: Jaundice COMPARISON: None TECHNIQUE: Standard protocol for this study/examination. FINDINGS: Total fluoroscopic time (continuous mode) utilized during the procedure 607.3 seconds. Total exam DLP: 409.86 (mGy). IMPRESSION: Less than 1 hr fluoroscopic assistance provided during performance of the procedure.
--- NOTE | 2018-08-18 12:21 | CP.PCM.PN ---
Subjective - Date & Time of Evaluation Date of Evaluation: 08/18/18 Time of Evaluation: 11:42 - Subjective Subjective: Pt notes RLQ abdominal pain improved today. Having BMs. Tolerated full breakfast. States he feels slightly stronger. Tbili trending down. Had ECHO this am. Objective - Vital Signs/Intake and Output Vital Signs (last 24 hours): Temp Pulse Resp BP Pulse Ox 98.1 F 70 20 168/90 H 97 08/18/18 08:13 08/18/18 08:13 08/18/18 08:13 08/18/18 08:13 08/18/18 08:13 Intake and Output: 08/18/18 08/18/18 06:59 18:59 Intake Total 300 Output Total 290 Balance 10 - Medications Medications: Current Medications Acetaminophen (Tylenol 325mg Tab) 650 mg PO Q6 PRN PRN Reason: Pain, Mild (1-3) Last Admin: 08/17/18 11:18 Dose: 650 mg Docusate Sodium (Colace) 100 mg PO DAILY [facility] Last Admin: 08/18/18 10:27 Dose: 100 mg Enoxaparin Sodium (Lovenox) 40 mg SC DAILY [facility]; Protocol Last Admin: 08/11/18 12:17 Dose: 40 mg Ampicillin Sodium/Sulbactam (Sodium 3 gm/ Sodium Chloride) 100 mls @ 100 mls/hr IVPB Q8 [facility] Last Admin: 08/18/18 10:28 Dose: 100 mls/hr Ondansetron HCl (Zofran Inj) 4 mg IVP Q6 PRN PRN Reason: Nausea/Vomiting Oxycodone/Acetaminophen (Percocet 5/325 Mg Tab) 1 tab PO Q6 PRN PRN Reason: Pain, moderate (4-7) Stop: 08/20/18 11:02 Last Admin: 08/18/18 06:33 Dose: 1 tab Pantoprazole Sodium (Protonix Inj) 40 mg IVP DAILY [facility] Last Admin: 08/18/18 10:28 Dose: 40 mg Polyethylene Glycol (Miralax) 17 gm PO DAILY [facility] Last Admin: 08/18/18 10:27 Dose: 17 gm Potassium Chloride (Potassium Chloride Oral Soln) 40 meq PO Q2H [facility] Stop: 08/18/18 16:01 Ursodiol (Actigall) 300 mg PO BID [facility] Last Admin: 08/18/18 10:27 Dose: 300 mg - Labs Labs: 08/18/18 04:50 08/18/18 04:50 PT 9.9 Seconds (9.8-13.1) 08/09/18 14:36 INR 0.9 08/09/18 14:36 APTT 38.3 Seconds (25.6-37.1) H 08/09/18 14:36 - Constitutional Appears: Well, No Acute Distress, Chronically Ill - Head Exam Head Exam: ATRAUMATIC, NORMAL INSPECTION, NORMOCEPHALIC - Eye Exam Eye Exam: EOMI, PERRL, Scleral icterus - ENT Exam ENT Exam: Mucous Membranes Moist - Neck Exam Neck Exam: Full ROM Additional comments: subcutaneous emphysema b/l, improved compared to prior - Respiratory Exam Respiratory Exam: Clear to Ausculation Bilateral - Cardiovascular Exam Cardiovascular Exam: REGULAR RHYTHM - GI/Abdominal Exam GI & Abdominal Exam: Soft, Normal Bowel Sounds - Neurological Exam Neurological Exam: Alert, Awake, Normal Gait, Oriented x3 - Psychiatric Exam Psychiatric exam: Normal Affect, Normal Mood Assessment and Plan (1) Hilar mass Assessment & Plan: 72 yo Citizen Of [place] man who p/w obstructive jaundice found to have hilar mass s/p ERCP w/ cholangioscopy, sphincterotomy and placement of L sided CBD stent (08/12/18) as well as R sided PTC done by IR (08/13/18). -tbili trending down -continue unasyn -pathology reviewed and not clearly malignant, but suspicion for cholangi ocarcinoma still remains and this was conveyed to the pt and pt's family -encourage ambulation -would try to minimize pain meds and tylenol as needed instead -no need for abdominal imaging as pain improved -f/u ECHO results -pt and pt's family to decide on where they want care --> if they plan to return to [facility], can start d/c planning -d/w pt and nursing staff Status: Acute
[2018-08-18] MEDS: Potassium Chloride 20 mEq/15 ml LIQ UD PO SCH ×3 (12:35→17:32)
--- NOTE | 2018-08-18 18:21 | CARD ---
APPROVED REPORT Date of service: 08/18/2018 EXAM: Two-dimensional and M-mode echocardiogram with Doppler and color Doppler. Other Information Quality : FairRhythm : NSR Technically limited study due to Poor Parasternal window INDICATION Pre-Op Aortic Valve AoV Peak Euappfbh805.1cm/sAoV VTI18.2cmAO Peak GR.6mmHg LVOT Peak Jbxtccwx44.9cm/sLVOT VTI15.28cmAO Mean GR.3mmHg Mitral Valve MV E Tfymivec79.6cm/sMV DECEL [id number] A Kguegtpb87.0cm/s MV PHV094zmN/A ratio0.6MVA (PHT)1.68cm2 TDI Lateral E' Peak V8.96cm/sMedial E' Peak V6.27cm/sE/Lateral E'5.6 E/Medial E'8.1 LEFT VENTRICLE The left ventricle is normal size. There is normal left ventricular wall thickness. The left ventricular systolic function is normal. The estimated ejection fraction is 50-55% No regional wall motion abnormalities noted.. Transmitral Doppler flow pattern is Grade I-abnormal relaxation pattern. No left ventricle thrombus noted on this study. There is no ventricular septal defect visualized. There is no left ventricular aneurysm. There is no mass noted in the left ventricle. RIGHT VENTRICLE The right ventricle is normal size. There is normal right ventricular wall thickness. The right ventricular systolic function is normal. ATRIA The left atrium size is normal. The right atrium size is normal. The interatrial septum is intact with no evidence for an atrial septal defect. AORTIC VALVE The aortic valve is normal in structure. Mild aortic regurgitation is present. There is no aortic valvular stenosis. There is no aortic valvular vegetation. MITRAL VALVE The mitral valve is normal in structure. There is no evidence of mitral valve prolapse. There is no mitral valve stenosis. There is mild mitral valve regurgitation noted. TRICUSPID VALVE The tricuspid valve is normal in structure. There is no tricuspid valve regurgitation noted. There is no tricuspid valve prolapse or vegetation. There is no tricuspid valve stenosis. PULMONIC VALVE The pulmonary valve is normal in structure. There is no pulmonic valvular regurgitation. There is no pulmonic valvular stenosis. GREAT VESSELS The aortic root is normal in size. The ascending aorta is normal in size. The pulmonary artery is normal. The IVC is normal in size and collapses >50% with inspiration. PERICARDIAL EFFUSION There is no pericardial effusion. There is no pleural effusion. <Conclusion> The estimated ejection fraction is 50-55% Transmitral Doppler flow pattern is Grade I-abnormal relaxation pattern. The left atrium size is normal. Mild aortic regurgitation is present. There is mild mitral valve regurgitation noted. There is no tricuspid valve regurgitation noted.
[2018-08-19] MEDS: Oxycodone/Acetaminophen 5/325 mg Tab PO PRN (01:14)
[2018-08-19 05:30] LABS: HEMOGLOBIN 10.7 g/dL (12.0-18.0); MEAN CELL VOLUME 88.7 fl (80.0-94.0); MEAN CORPUSCULAR HEMOGLOBIN 30.4 pg (27.0-31.0); MEAN CORPUSCULAR HGB CONC 34.2 g/dL (33.0-37.0); RBC 3.54 Mil/uL (4.40-5.90); RED CELL DISTRIBUTION WIDTH 18.4 % (11.5-14.5); WHITE BLOOD COUNT 9.6 K/uL (4.8-10.8)
[2018-08-19 05:53] LABS: ALB/GLOB RATIO 0.8 (1.0-2.1); ALT/SGPT 86 U/L (21-72); AST/SGOT 35 U/L (17-59); BLOOD UREA NITROGEN 17 mg/dl (9-20); CALCIUM 8.6 mg/dL (8.4-10.2); GFR NON-AFRICAN AMERICAN > 60
--- NOTE | 2018-08-19 07:54 | CP.PCM.PN ---
<Ophelia Shoemaker - Last Filed: 08/19/18 08:30> Subjective - Date & Time of Evaluation Date of Evaluation: 08/19/18 Time of Evaluation: 07:53 - Subjective Subjective: General surgery note: Dr. Leon 72 year old male patient seen and examined at bedside. Patient resting comfortably and in NAD. Patient reports intermittent epigastric discomfort, improving. PTC drain in place with 150cc/24hrs. Objective - Vital Signs/Intake and Output Vital Signs (last 24 hours): Temp Pulse Resp BP Pulse Ox 98.5 F 66 20 142/89 95 08/19/18 05:19 08/19/18 05:19 08/19/18 05:19 08/19/18 05:19 08/19/18 05:19 Intake and Output: 08/19/18 08/19/18 06:59 18:59 Intake Total 400 Output Total 150 Balance 250 - Medications Medications: Current Medications Acetaminophen (Tylenol 325mg Tab) 650 mg PO Q6 PRN PRN Reason: Pain, Mild (1-3) Last Admin: 08/18/18 21:09 Dose: 650 mg Docusate Sodium (Colace) 100 mg PO DAILY [facility] Last Admin: 08/18/18 10:27 Dose: 100 mg Enoxaparin Sodium (Lovenox) 40 mg SC DAILY [facility]; Protocol Last Admin: 08/11/18 12:17 Dose: 40 mg Ampicillin Sodium/Sulbactam (Sodium 3 gm/ Sodium Chloride) 100 mls @ 100 mls/hr IVPB Q8 [facility] Last Admin: 08/19/18 00:30 Dose: 100 mls/hr Ondansetron HCl (Zofran Inj) 4 mg IVP Q6 PRN PRN Reason: Nausea/Vomiting Last Admin: 08/18/18 17:41 Dose: 4 mg Oxycodone/Acetaminophen (Percocet 5/325 Mg Tab) 1 tab PO Q6 PRN PRN Reason: Pain, moderate (4-7) Stop: 08/20/18 11:02 Last Admin: 08/19/18 01:14 Dose: 1 tab Pantoprazole Sodium (Protonix Inj) 40 mg IVP DAILY [facility] Last Admin: 08/18/18 10:28 Dose: 40 mg Polyethylene Glycol (Miralax) 17 gm PO DAILY [facility] Last Admin: 08/18/18 10:27 Dose: 17 gm Ursodiol (Actigall) 300 mg PO BID [facility] Last Admin: 08/18/18 17:31 Dose: 300 mg - Labs Labs: 08/19/18 05:21 08/19/18 05:21 PT 9.9 Seconds (9.8-13.1) 08/09/18 14:36 INR 0.9 08/09/18 14:36 APTT 38.3 Seconds (25.6-37.1) H 08/09/18 14:36 - Constitutional Appears: Non-toxic, No Acute Distress - Head Exam Head Exam: ATRAUMATIC, NORMOCEPHALIC - Eye Exam Eye Exam: Scleral icterus - Respiratory Exam Respiratory Exam: Clear to Ausculation Bilateral, NORMAL BREATHING PATTERN - Cardiovascular Exam Cardiovascular Exam: +S1, +S2 - GI/Abdominal Exam GI & Abdominal Exam: Distended, Soft - Neurological Exam Neurological Exam: Alert, Awake, Oriented x3 - Psychiatric Exam Psychiatric exam: Normal Affect, Normal Mood - Skin Skin Exam: Warm Additional comments: Jaundice Assessment and Plan - Assessment and Plan (Free Text) Assessment: 72 year old male patient with intaheptal ductal mass, s/p PTC, s/p ERCP with L sided CBD stent Plan: - Unasyn - Pain management PRN - C/w ambulation - Monitor LFTs and Tbili - Clamp off PTC and flush with 5cc of saline every 12 hrs - Replete electrolytes as needed - Echo; EF 50-55%. Transmitral doppler flow pattern is grade I abnormal relaxation pattern. Mild aortic regurgitation is present. There is mild mitral valve regurgitation noted. - Will discuss with family the options for pursuing treatment here or [facility] - Low fat diet as tolerated - Discussed with Dr. Booth <Nader Leon - Last Filed: 08/19/18 11:05> Objective - Vital Signs/Intake and Output Vital Signs (last 24 hours): Temp Pulse Resp BP Pulse Ox 98.3 F 63 20 158/68 H 93 L 08/19/18 08:00 08/19/18 08:00 08/19/18 08:00 08/19/18 08:00 08/19/18 08:00 Intake and Output: 08/19/18 08/19/18 06:59 18:59 Intake Total 400 Output Total 150 Balance 250 - Medications Medications: Current Medications Docusate Sodium (Colace) 100 mg PO DAILY [facility] Last Admin: 08/19/18 09:02 Dose: 100 mg Enoxaparin Sodium (Lovenox) 40 mg SC DAILY [facility]; Protocol Last Admin: 08/19/18 10:56 Dose: 40 mg Ampicillin Sodium/Sulbactam (Sodium 3 gm/ Sodium Chloride) 100 mls @ 100 mls/hr IVPB Q8 [facility] Last Admin: 08/19/18 09:16 Dose: 100 mls/hr Ibuprofen (Motrin Tab) 800 mg PO Q8 PRN PRN Reason: Pain, moderate (4-7) Last Admin: 08/19/18 09:34 Dose: 800 mg Ondansetron HCl (Zofran Inj) 4 mg IVP Q6 PRN PRN Reason: Nausea/Vomiting Last Admin: 08/18/18 17:41 Dose: 4 mg Oxycodone HCl (Oxycodone Immediate Release Tab) 5 mg PO Q6 PRN PRN Reason: Pain, severe (8-10) Pantoprazole Sodium (Protonix Inj) 40 mg IVP DAILY [facility] Last Admin: 08/19/18 09:11 Dose: 40 mg Polyethylene Glycol (Miralax) 17 gm PO DAILY [facility] Last Admin: 08/19/18 09:04 Dose: 17 gm Ursodiol (Actigall) 300 mg PO BID [facility] Last Admin: 08/19/18 09:02 Dose: 300 mg - Labs Labs: 08/19/18 05:21 08/19/18 05:21 PT 9.9 Seconds (9.8-13.1) 08/09/18 14:36 INR 0.9 08/09/18 14:36 APTT 38.3 Seconds (25.6-37.1) H 08/09/18 14:36 Assessment and Plan - Assessment and Plan (Free Text) Plan: All medical record entries made by the resident were at my direction. I have rev iewed the chart and agree that the record accurately reflects my personal performance of the history, physical exam, and medical decision making for this patient.
[2018-08-19] MEDS: POLYETHYLENE GLYCOL 3350 17 GM/Dose PACKET PO SCH (09:04)
[2018-08-19] MEDS ORDERED: oxyCODONE 5 mg Immediate Release Tab PO PRN (09:11)
[2018-08-19] MEDS: Potassium Chloride 20 mEq/15 ml LIQ UD PO SCH ×2 (09:18→09:33)
[2018-08-19] MEDS: Enoxaparin 40 mg Syringe SC SCH (10:56)
[2018-08-20 05:57] LABS: HEMOGLOBIN 10.4 g/dL (12.0-18.0); MEAN CELL VOLUME 89.8 fl (80.0-94.0); MEAN CORPUSCULAR HEMOGLOBIN 30.5 pg (27.0-31.0); RBC 3.41 Mil/uL (4.40-5.90); RED CELL DISTRIBUTION WIDTH 18.1 % (11.5-14.5); WHITE BLOOD COUNT 8.9 K/uL (4.8-10.8)
[2018-08-20 06:04] LABS: ALB/GLOB RATIO 0.9 (1.0-2.1); ALBUMIN 2.8 g/dL (3.5-5.0); ALT/SGPT 69 U/L (21-72); AST/SGOT 32 U/L (17-59); BLOOD UREA NITROGEN 17 mg/dl (9-20); CALCIUM 8.5 mg/dL (8.4-10.2); GFR NON-AFRICAN AMERICAN > 60
[2018-08-20 06:07] LABS: INR 1.2; PROTHROMBIN TIME 13.9 Seconds (9.8-13.1)
[2018-08-20 06:10] LABS: PARTIAL THROMBOPLASTIN TIME 32.3 Seconds (25.6-37.1)
[2018-08-20] MEDS: POLYETHYLENE GLYCOL 3350 17 GM/Dose PACKET PO SCH (08:53)
[2018-08-20] MEDS: Enoxaparin 40 mg Syringe SC SCH (08:53)
--- NOTE | 2018-08-20 11:20 | CP.PCM.PN ---
<Ophelia Shoemaker - Last Filed: 08/20/18 15:30> Subjective - Date & Time of Evaluation Date of Evaluation: 08/20/18 Time of Evaluation: 11:19 - Subjective Subjective: General surgery note: Dr. Leon 72 year old male patient seen and examined at bedside. Patient reporting mild discomfort to abdomen with deep inhalation, however pain improving. Patient tolerating diet, denies any nausea/vomiting/fever. Objective - Vital Signs/Intake and Output Vital Signs (last 24 hours): Temp Pulse Resp BP Pulse Ox 98 F 63 20 132/80 97 08/20/18 08:10 08/20/18 08:10 08/20/18 08:10 08/20/18 08:10 08/20/18 08:10 - Medications Medications: Current Medications Docusate Sodium (Colace) 100 mg PO DAILY [facility] Last Admin: 08/20/18 08:52 Dose: Not Given Enoxaparin Sodium (Lovenox) 40 mg SC DAILY [facility]; Protocol Last Admin: 08/20/18 08:53 Dose: 40 mg Ampicillin Sodium/Sulbactam (Sodium 3 gm/ Sodium Chloride) 100 mls @ 100 mls/hr IVPB Q8 [facility] Last Admin: 08/20/18 09:01 Dose: 100 mls/hr Ondansetron HCl (Zofran Inj) 4 mg IVP Q6 PRN PRN Reason: Nausea/Vomiting Last Admin: 08/20/18 08:53 Dose: 4 mg Oxycodone HCl (Oxycodone Immediate Release Tab) 5 mg PO Q6 PRN PRN Reason: Pain, severe (8-10) Pantoprazole Sodium (Protonix Inj) 40 mg IVP DAILY [facility] Last Admin: 08/20/18 09:01 Dose: 40 mg Polyethylene Glycol (Miralax) 17 gm PO DAILY [facility] Last Admin: 08/20/18 08:53 Dose: Not Given Ursodiol (Actigall) 300 mg PO BID [facility] Last Admin: 08/20/18 08:52 Dose: Not Given - Labs Labs: 08/20/18 05:00 08/20/18 05:00 PT 13.9 Seconds (9.8-13.1) H 08/20/18 05:00 INR 1.2 08/20/18 05:00 APTT 32.3 Seconds (25.6-37.1) 08/20/18 05:00 - Constitutional Appears: No Acute Distress - Head Exam Head Exam: ATRAUMATIC, NORMOCEPHALIC - Respiratory Exam Respiratory Exam: Clear to Ausculation Bilateral - Cardiovascular Exam Cardiovascular Exam: +S1, +S2 - GI/Abdominal Exam GI & Abdominal Exam: Soft - Neurological Exam Neurological Exam: Alert, Awake, Oriented x3 - Psychiatric Exam Psychiatric exam: Normal Affect, Normal Mood - Skin Skin Exam: Dry, Intact Additional comments: Jaundice Assessment and Plan - Assessment and Plan (Free Text) Assessment: 72 year old male patient with intaheptal ductal mass, s/p PTC, s/p ERCP with L sided CBD stent Plan: - Unasyn - Plan for transfer to [facility] after stress test, plan for OR for diagnostic laparoscopy with possible liver resection - Pain management PRN - C/w ambulation - Monitor LFTs and Tbili - PTC clamped for 24hrs, flush with 5cc of saline every 12 hrs - Replete electrolytes as needed - Echo; EF 50-55%. Transmitral doppler flow pattern is grade I abnormal relaxation pattern. Mild aortic regurgitation is present. There is mild mitral valve regurgitation noted. - Follow up stress test results - Will discuss with family the options for pursuing treatment here or [facility] - Low fat diet as tolerated - Discussed with Dr. Booth <Nader Leon - Last Filed: 08/25/18 17:27> Objective - Vital Signs/Intake and Output Vital Signs (last 24 hours): Temp Pulse Resp BP Pulse Ox 98.0 F 67 17 130/81 98 08/20/18 19:40 08/20/18 19:40 08/20/18 19:40 08/20/18 19:40 08/20/18 19:40 - Labs Labs: 08/20/18 05:00 08/20/18 05:00 PT 13.9 Seconds (9.8-13.1) H 08/20/18 05:00 INR 1.2 08/20/18 05:00 APTT 32.3 Seconds (25.6-37.1) 08/20/18 05:00 Assessment and Plan - Assessment and Plan (Free Text) Plan: All medical record entries made by the resident were at my direction. I have reviewed the chart and agree that the record accurately reflects my personal performance of the history, physical exam, and medical decision making.
--- NOTE | 2018-08-20 14:45 | CP.PCM.CON ---
<Ajay Loyd - Last Filed: 08/20/18 14:39> History of Present Illness - History of Present Illness History of Present Illness: Ajay Loyd, PGY-1, Cardiology Consult Note for Dr. Torre 72 year old male with past medical history of Zenker's diverticulum presents with RUQ pain, constipation, and jaundice. Patient reports that family noticed patient's jaundice one week prior to presentation. Upon presentation, patient was found to have mass at liver hilum, which was considered as possible [place] tumor. Patient scheduled for surgery tomorrow. As a result, cardiology was consulted for cardiac risk stratification. Patient today reports RUQ pain from being on a clear liquid diet. In addition, patient reports jaundice and constipation. While patient has daily bowel movements, he feels like he has been incompletely defecating. PMH: Zenker's diverticulum PSH: appendectomy FMHx: denies SHx: stopped smoking 3-4 years ago. he used to smoke occassionally, social drinker 1-2 glass of wine a week, denies recreational drug use Allergies: Sulfa PMD: denies Stress test 40 years ago was unremarkable Cardiac catheterization in 1986 was unremarkable. Review of Systems - Review of Systems Review of Systems: except as mentioned in HPI Past Patient History - Past Medical History & Family History Past Medical History?: Yes - Past Social History Alcohol: Occasional - CARDIAC Hx Cardiac Disorders: No - PULMONARY Hx Respiratory Disorders: No - NEUROLOGICAL Hx Neurological Disorder: No - HEENT Hx HEENT Problems: No - RENAL Hx Chronic Kidney Disease: No - ENDOCRINE/METABOLIC Hx Endocrine Disorders: No - HEMATOLOGICAL/ONCOLOGICAL Hx Blood Disorders: No - INTEGUMENTARY Hx Dermatological Problems: No - MUSCULOSKELETAL/RHEUMATOLOGICAL Hx Musculoskeletal Disorders: No Hx Falls: No - GASTROINTESTINAL Hx Gastrointestinal Disorders: Yes Hx Irritable Bowel: Yes - GENITOURINARY/GYNECOLOGICAL Hx Genitourinary Disorders: No - PSYCHIATRIC Hx Psychophysiologic Disorder: No Hx Substance Use: No - SURGICAL HISTORY Hx Appendectomy: Yes - ANESTHESIA Hx Anesthesia: Yes Hx Anesthesia Reactions: No Meds Allergies/Adverse Reactions: Allergies Allergy/AdvReac Type Severity Reaction Status Date / Time Sulfa (Sulfonamide Allergy REDNESS Verified 08/09/18 13:34 Antibiotics) - Medications Medications: Current Medications Docusate Sodium (Colace) 100 mg PO DAILY [facility] Last Admin: 08/20/18 08:52 Dose: Not Given Enoxaparin Sodium (Lovenox) 40 mg SC DAILY [facility]; Protocol Last Admin: 08/20/18 08:53 Dose: 40 mg Ampicillin Sodium/Sulbactam (Sodium 3 gm/ Sodium Chloride) 100 mls @ 100 mls/hr IVPB Q8 [facility] Last Admin: 08/20/18 09:01 Dose: 100 mls/hr Ondansetron HCl (Zofran Inj) 4 mg IVP Q6 PRN PRN Reason: Nausea/Vomiting Last Admin: 08/20/18 08:53 Dose: 4 mg Oxycodone HCl (Oxycodone Immediate Release Tab) 5 mg PO Q6 PRN PRN Reason: Pain, severe (8-10) Pantoprazole Sodium (Protonix Inj) 40 mg IVP DAILY [facility] Last Admin: 08/20/18 09:01 Dose: 40 mg Polyethylene Glycol (Miralax) 17 gm PO DAILY [facility] Last Admin: 08/20/18 08:53 Dose: Not Given Ursodiol (Actigall) 300 mg PO BID [facility] Last Admin: 08/20/18 08:52 Dose: Not Given Physical Exam - Constitutional Appears: Well, Non-toxic, No Acute Distress - Head Exam Head Exam: ATRAUMATIC, NORMAL INSPECTION, NORMOCEPHALIC - Eye Exam Eye Exam: EOMI, PERRL, Scleral icterus - ENT Exam ENT Exam: Mucous Membranes Moist - Respiratory Exam Respiratory Exam: Clear to Auscultation Bilateral, NORMAL BREATHING PATTERN - Cardiovascular Exam Cardiovascular Exam: REGULAR RHYTHM, RRR, +S1, +S2 - GI/Abdominal Exam GI & Abdominal Exam: Normal Bowel Sounds, Soft, Tenderness (RUQ) - Extremities Exam Extremities exam: Positive for: full ROM, normal inspection. Negative for: pedal edema - Neurological Exam Neurological exam: Alert, CN II-XII Intact, Oriented x3 - Skin Additional comments: jaundice Results - Vital Signs Recent Vital Signs: Last Vital Signs Temp 98.8 F 08/20/18 13:23 Pulse 110 H 08/20/18 13:23 Resp 20 08/20/18 12:37 BP 100/60 08/20/18 13:23 Pulse Ox 98 08/20/18 12:37 - Labs Result Diagrams: 08/20/18 05:00 08/20/18 05:00 Labs: Laboratory Results - last 24 hr 08/20/18 08/20/18 08/20/18 05:00 05:00 05:00 WBC 8.9 RBC 3.41 L Hgb 10.4 L Hct 30.6 L MCV 89.8 MCH 30.5 MCHC 34.0 RDW 18.1 H Plt Count 347 PT 13.9 H INR 1.2 APTT 32.3 Sodium Potassium Chloride Carbon Dioxide Anion Gap BUN Creatinine Est GFR ( Amer) Est GFR (Non-Af Amer) Random Glucose Calcium Phosphorus Magnesium Total Bilirubin AST ALT Alkaline Phosphatase Total Protein Albumin Globulin Albumin/Globulin Ratio Blood Type O POSITIVE Blood Type Confirm Antibody Screen Negative BBK History Checked No verified bt 08/20/18 08/20/18 05:00 07:50 WBC RBC Hgb Hct MCV MCH MCHC RDW Plt Count PT INR APTT Sodium 134 Potassium 4.0 Chloride 101 Carbon Dioxide 26 Anion Gap 11 BUN 17 Creatinine 0.7 L Est GFR ( Amer) > 60 Est GFR (Non-Af Amer) > 60 Random Glucose 85 Calcium 8.5 Phosphorus 4.0 Magnesium 2.4 H Total Bilirubin 10.7 H AST 32 ALT 69 Alkaline Phosphatase 313 H Total Protein 6.1 L Albumin 2.8 L Globulin 3.3 Albumin/Globulin Ratio 0.9 L Blood Type Blood Type Confirm O POSITIVE Antibody Screen BBK History Checked Assessment & Plan (1) Risk and functional assessment Assessment and Plan: Echocardiogram: grade I abnormal relaxation pattern, mild AR, mild MR, LVEF of 50-55% NSR with HR 60 Patient had stress test today but was incomplete. Patient will need nuclear stress test prior to clearing patient for surgery. Status: Acute (2) Gall bladder disease Assessment and Plan: MRCP: suspicious for mass lesion/focal infiltrate with abnormal enhancement at the liver hilum. Possibility of neoplasm such as cholangiocarcinoma [place] tumor should be considered. The differential consideration includes central biliary tree stricture due to prior cholangitis or less likely recurrent pyogenic cholangiohepatitis Endoscopy: single severe biliary stricture found in the upper third of the main bile duct Esophageal X ray: Zenker's diverticulum Soft tissue X ray: pneumomediastium and extensive subcutaneous emphysema of the neck. Patient scheduled for surgery tomorrow. Status: Acute - Date & Time Date: 08/20/18 Time: 14:46 <Jacques Torre - Last Filed: 08/27/18 21:53> Results - Vital Signs Recent Vital Signs: Last Vital Signs Temp 98.0 F 08/20/18 19:40 Pulse 67 08/20/18 19:40 Resp 17 08/20/18 19:40 BP 130/81 08/20/18 19:40 Pulse Ox 98 08/20/18 19:40 - Labs Result Diagrams: 08/20/18 05:00 08/20/18 05:00 Attending/Attestation - Attestation I have personally seen and examined this patient.: Yes I have fully participated in the care of the patient.: Yes I have reviewed all pertinent clinical information: Yes
[2018-08-20 15:40] VITALS: RESP 17
--- NOTE | 2018-08-20 16:46 | CP.PCM.PN ---
Subjective - Date & Time of Evaluation Date of Evaluation: 08/20/18 Time of Evaluation: 12:00 - Subjective Subjective: Pt doing well. Abdominal pain improved. Feels pretty good. 300 cc of bilious fluid draining out. Had stress test earlier today. Objective - Vital Signs/Intake and Output Vital Signs (last 24 hours): Temp Pulse Resp BP Pulse Ox 98 F 63 20 132/80 97 08/20/18 08:10 08/20/18 08:10 08/20/18 08:10 08/20/18 08:10 08/20/18 08:10 - Medications Medications: Current Medications Docusate Sodium (Colace) 100 mg PO DAILY [facility] Last Admin: 08/20/18 08:52 Dose: Not Given Enoxaparin Sodium (Lovenox) 40 mg SC DAILY [facility]; Protocol Last Admin: 08/20/18 08:53 Dose: 40 mg Ampicillin Sodium/Sulbactam (Sodium 3 gm/ Sodium Chloride) 100 mls @ 100 mls/hr IVPB Q8 [facility] Last Admin: 08/20/18 09:01 Dose: 100 mls/hr Ondansetron HCl (Zofran Inj) 4 mg IVP Q6 PRN PRN Reason: Nausea/Vomiting Last Admin: 08/20/18 08:53 Dose: 4 mg Oxycodone HCl (Oxycodone Immediate Release Tab) 5 mg PO Q6 PRN PRN Reason: Pain, severe (8-10) Pantoprazole Sodium (Protonix Inj) 40 mg IVP DAILY [facility] Last Admin: 08/20/18 09:01 Dose: 40 mg Polyethylene Glycol (Miralax) 17 gm PO DAILY [facility] Last Admin: 08/20/18 08:53 Dose: Not Given Ursodiol (Actigall) 300 mg PO BID [facility] Last Admin: 08/20/18 08:52 Dose: Not Given - Labs Labs: 08/20/18 05:00 08/20/18 05:00 PT 13.9 Seconds (9.8-13.1) H 08/20/18 05:00 INR 1.2 08/20/18 05:00 APTT 32.3 Seconds (25.6-37.1) 08/20/18 05:00 - Constitutional Appears: Non-toxic, No Acute Distress, Chronically Ill - Head Exam Head Exam: ATRAUMATIC, NORMAL INSPECTION - Eye Exam Eye Exam: EOMI, Scleral icterus Pupil Exam: NORMAL ACCOMODATION - ENT Exam ENT Exam: Mucous Membranes Moist, Normal Exam - Neck Exam Neck Exam: Full ROM, Normal Inspection Additional comments: still with some subcutaneous emphysema - Respiratory Exam Respiratory Exam: NORMAL BREATHING PATTERN - Cardiovascular Exam Cardiovascular Exam: RRR, +S1, +S2, +S4 - GI/Abdominal Exam GI & Abdominal Exam: Soft Additional comments: still slightly distended and tympanic, but improved - Extremities Exam Extremities Exam: Full ROM Assessment and Plan (1) Hilar mass Assessment & Plan: 72 yo [place] man who p/w obstructive jaundice found to have hilar mass s/p ERCP w/ cholangioscopy, sphincterotomy and placement of L sided CBD stent (08/12/18) as well as R sided PTC done by IR (08/13/18). -tbili trending down -continue unasyn -to go for ex-[facility] tmrw at [facility] -remainder of recs as per surgery team Status: Acute
--- NOTE | 2018-08-20 17:35 | CARD ---
APPROVED REPORT Date of service: 08/20/2018 Protocol: MODBRUCE Test Type: Treadmill Stress Test Attending Physician: Dr. DR. NUNEZ Referring Physician: Dr. 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 [id number]/[id number]. PRETESTHYPERV.[id number]/[id number]. [id number]/60.1. EXERCISESTAGE 001:[id number]/60.0. [id number]/60.0. POST EXERCISE Reason for Termination: Target heart rate achieved Target HR: NoMax HR: 134 bpm93% of Maximum Predicted HR: 146 bpm Exercise duration: 1 Stage01:52 min:secExercise capacity: 2.2METs Max Blood Pressure: 120/70mmHg Blood Pressure response to exercise: normal resting BP - appropriate response Heart Rate response to exercise: appropriate Chest Pain: NononeAngina index: 0 Arrhythmia: Yes ST Change: YesDepression upslopingDeviation: 0 mm INTERPRETATION Stress test: Patient was exercised in a modify Hernan protocole for a total only of 1.52 mintues. Stress test was terminatted due to reaching over 90% of predicted heart rate and fatigue. No st or t waves changes were noticed. Blood pressure response was normal. No arrythmias was seen. Final impressions: 1- Normal stress test (no evidence of st changes suggestive of myocardial ischmiea at maximium exercises) 2- Very reduce exercise tolerance (patient has severe jaundice and multiple medical problems)
[2018-08-20 19:40] VITALS: BP 130/81; PULSE 67; TEMP 98; O2SAT 98
[2018-08-20] MEDS ORDERED: Sodium Chloride 0.9% 1,000 ML IV SCH (20:30)
[2018-08-20] MEDS ORDERED: Lactated Ringer's 1,000 ML IV SCH (23:50)
== END 2018-08-20 23:00 | disposition short-term general hospital (02) | DRG 435 ==
LOC: H.ER 13:32 → H.ERHOLD 19:15 → H.MEDSURG1 08-10 01:09 → H.TEL 08-13 21:55
PROVIDERS: ADMIT Surgery; ATTEND Surgery
PROC: 0FB98ZX Excision of Common Bile Duct, Via Natural or Artificial Opening Endoscopic, Diagnostic (ICD-10-PCS; 2018-08-12)
PROC: BF43ZZZ Ultrasonography of Gallbladder and Bile Ducts (ICD-10-PCS; 2018-08-12)
PROC: 0F798DZ Dilation of Common Bile Duct with Intraluminal Device, Via Natural or Artificial Opening Endoscopic (ICD-10-PCS; 2018-08-12)
PROC: 0DJ08ZZ Inspection of Upper Intestinal Tract, Via Natural or Artificial Opening Endoscopic (ICD-10-PCS; principal; 2018-08-12 10:30)
PROC: BF10YZZ Fluoroscopy of Bile Ducts using Other Contrast (ICD-10-PCS; 2018-08-13)
DX: C22.1 Intrahepatic bile duct carcinoma (principal); K83.1 Obstruction of bile duct; C77.9 Secondary and unspecified malignant neoplasm of lymph node, unspecified; K22.5 Diverticulum of esophagus, acquired; K58.0 Irritable bowel syndrome with diarrhea; Z87.891 Personal history of nicotine dependence; Z88.2 Allergy status to sulfonamides; T81.82XA Emphysema (subcutaneous) resulting from a procedure, initial encounter